=== PATIENT | male | born 1985 | race African-American/Black ===

== ENCOUNTER 2016-09-13 06:58 | Inpatient (IN) | payer OTHER ==
[2016-09-13] VITALS (10 sets, daily range): BP systolic 157–205; BP diastolic 68–110; PULSE 85–101; RESP 20; Ht 182.9 cm; Wt 154.0 kg
[~2016-09-13] VITALS: Ht 182.9 cm; Wt 154.0 kg
[2016-09-13] MEDS ORDERED: LORAZEPAM 2 MG INJ IV STA (07:14)
[2016-09-13] MEDS ORDERED: SOD CHLORIDE 0.9% 1,000 ML IV STA (07:14)
[2016-09-13 07:25] LABS: ADD SCAN DIFF NO
[2016-09-13 07:29] LABS: POTASSIUM 4.4 mmol/L (3.5-5.1)
[2016-09-13 07:30] LABS: INR 1.05; PROTIME 13.7 Sec (12.2-14.2); PT RATIO 1.1
[2016-09-13 07:31] LABS: PARTIAL THROMBOPLASTIN TIME 24.8 Sec (25.0-35.0)
[2016-09-13 07:32] LABS: CALCIUM 7.2 mg/dl (8.4-10.2)
[2016-09-13 07:33] LABS: BASOPHILS % 0.3 % (0.0-2.0); EOSINOPHILS # 0.1 10^3/ul (0.0-0.5); EOSINOPHILS % 0.7 % (0.0-7.0); HEMATOCRIT 27.9 % (42.0-52.0); HEMOGLOBIN 8.9 g/dl (14.0-18.0); LYMPHOCYTES # 1.6 10^3/ul (0.8-2.9); LYMPHOCYTES % 22.3 % (15.0-51.0); MEAN CORPUSCULAR HEMOGLOBIN 27.5 pg (29.0-33.0); MEAN CORPUSCULAR HGB CONC 31.9 g/dl (32.0-37.0); MEAN CORPUSCULAR VOLUME 86.1 fl (82.0-101.0); MEAN PLATELET VOLUME 12.1 fl (7.4-10.4); MONOCYTE # 0.5 10^3/ul (0.3-0.9); MONOCYTES % 7.4 % (0.0-11.0); NEUTROPHILS % 68.7 % (39.0-77.0); PLATELET COUNT 225 10^3/UL (140-415); RED BLOOD COUNT 3.24 10^6/ul (4.70-6.10); RED CELL DISTRIBUTION WIDTH 14.4 % (11.5-14.5); WHITE BLOOD COUNT 7.3 10^3/ul (4.8-10.8)
[2016-09-13 07:46] LABS: CREATININE 19.55 mg/dl (0.61-1.24)
--- NOTE | 2016-09-13 08:06 | RADRPT ---
PROCEDURE: CT BRAIN WITHOUT CONTRAST CLINICAL INDICATION: 31-year-old male with seizure. TECHNIQUE: The study was performed utilizing [employer] VCT 64-slice CT scanner. Direct axial sections were obtained from the foramen magnum to the vertex without the use of intravenous contrast material. Sagittal and coronal reformations were obtained. One or more of the following dose reduc tion techniques were utilized: automated exposure control, adjustment of the mA and/or kV according to patient's size or use of iterative reconstruction technique. The images were viewed on a PACS w orkstation. CTD/vol = 44.6 mGy; Total Exam DLP = 720.2 mGy-cm. COMPARISON: None. FINDINGS: There has been a prior left frontal craniotomy. There is underlying focal left frontal encephalomal acia with a cortical calcific density measuring 5 x 3 mm. This may be from a prior ventriculostomy. There is mild prominence of the sulci and cisternal spaces consistent with diffuse volume loss. Th ere are mild periventricular and deep white matter areas of decreased density. There is no evidence for mass effect or midline shift. There is no evidence for acute intra or extra-axial blood. The v isualized paranasal sinuses are without abnormal soft tissue. IMPRESSION: 1. Status post left frontal craniotomy. 2. Focal left frontal encephalomalacia with a small cortical calcification possibly from prior vent riculostomy placement. 3. Mild diffuse volume loss. 4. Diffuse periventricular and deep white matter areas of abnormal density. Prior studies are not available to assess interval change. Etiologies include sequela of prior trauma, radiation therapy, vasculitis. Clinical correlation is necessary. .Adam Olsen MD, Date Time Electronically viewed and signed by .Adam Olsen MD, on 09/13/2016 08:06 .M/
[2016-09-13 08:39] LABS: POTASSIUM 4.3 mmol/L (3.5-5.1)
[2016-09-13 08:54] LABS: CREATININE 19.54 mg/dl (0.61-1.24)
[2016-09-13] MEDS ORDERED: ONDANSETRON 4 MG INJ IV PRN ×2 (09:30→10:30)
[2016-09-13] MEDS ORDERED: ACETAMINOPHEN 325 MG TAB PO PRN ×2 (09:30→10:30)
[2016-09-13] MEDS ORDERED: LABETALOL HCL 20MG INJ IV ONE (09:30)
[2016-09-13] MEDS ORDERED: SOD CHLORIDE 0.9% 1,000 ML IV SCH (10:27)
[2016-09-13] MEDS ORDERED: NITROGLYCERIN (SL) 0.4 MG TAB SL PRN (10:30)
[2016-09-13] MEDS ORDERED: LORAZEPAM 2 MG INJ IV PRN (10:30)
[2016-09-13] MEDS ORDERED: MAGNESIUM HYDROXIDE 30ML CUP PO PRN (10:30)
[2016-09-13] MEDS ORDERED: NACL 0.9% 3 ML SYG IV SCH (10:30)
[2016-09-13] MEDS ORDERED: NA PHOSPHATE/BIPHOS 133 ML ENEMA PR PRN (10:30)
[2016-09-13] MEDS ORDERED: DOCUSATE SODIUM 100 MG CAP PO PRN (10:30)
[2016-09-13] MEDS ORDERED: ALBUTEROL/IPRATROPIUM (NEB) 3 ML AMP HHN PRN (10:30)
--- NOTE | 2016-09-13 10:42 | ERA ---
ER Documentation Chief Complaint Date/Time DATE: 09/13/16 TIME: 10:39 Chief Complaint POSSIBLE SEIZURE WITH ORAL TRAUMA HPI Patient is a 31-year-old male with no medical problems who presents with a seizure. The patient was brought in by ambulance. He says "it felt like somebody was twisting my arm behind my back" and then he does not remember anything. He bit his tongue. He fell to the ground. He has never had a seizure before. He denies fevers or medications. He said this happened just prior to arrival. His roommate witnessed this and called 911. Upon review of old medical records this is the patient's first visit to the emergency department. He does not currently have a primary doctor. He denies any urinary symptoms or decrease in urination. ROS All systems reviewed and are negative except as per history of present illness. 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.) Hx Miscellaneous Medical Probl: Yes Hx Alcohol Use: No Hx Substance Use: No Hx Tobacco Use: No Smoking Status: Unknown if ever smoked FmHx Family History: No diabetes Physical Exam Vitals Vital Signs Date Time Temp Pulse Resp B/P Pulse Ox O2 Delivery O2 Flow Rate FiO2 09/13/16 10:37 81 21 165/113 100 Room Air 09/13/16 09:43 80 22 152/108 100 Room Air 09/13/16 09:21 90 21 166/113 98 Room Air 09/13/16 07:03 98.1 118 24 165/119 98 Physical Exam Const: No acute distress Head: Atraumatic Eyes: Normal Conjunctiva ENT: Patient does have a laceration to the left side of the tongue which is no longer bleeding Neck: Full range of motion..~ No meningismus. Resp: Clear to auscultation bilaterally Cardio: Regular rate and rhythm, no murmurs Abd: Soft, non tender, non distended. Normal bowel sounds Skin: No petechiae or rashes Back: No midline or flank tenderness Ext: No cyanosis, or edema Neur: Awake and alert, cranial nerves II through XII are intact, strength is 5 out of 5 in all 4 extremities, no slurred speech Psych: Normal Mood and Affect Result Diagram: 09/13/16 0706 09/13/16 0809 Results 24 hrs Laboratory Tests Test 09/13/16 07:06 09/13/16 08:09 White Blood Count 7.310^3/ul Red Blood Count 3.2410^6/ul Hemoglobin 8.9g/dl Hematocrit 27.9% Mean Corpuscular Volume 86.1fl Mean Corpuscular Hemoglobin 27.5pg Mean Corpuscular Hemoglobin Concent 31.9g/dl Red Cell Distribution Width 14.4% Platelet Count 57119^3/UL Mean Platelet Volume 12.1fl Neutrophils % 68.7% Lymphocytes % 22.3% Monocytes % 7.4% Eosinophils % 0.7% Basophils % 0.3% Nucleated Red Blood Cells % 0.0/100WBC Neutrophils # 5.010^3/ul Lymphocytes # 1.610^3/ul Monocytes # 0.510^3/ul Eosinophils # 0.110^3/ul Basophils # 0.010^3/ul Nucleated Red Blood Cells # 0.010^3/ul Prothrombin Time 13.7Sec Prothrombin Time Ratio 1.1 INR International Normalized Ratio 1.05 Activated Partial Thromboplast Time 24.8Sec Sodium Level 143mmol/L 143mmol/L Potassium Level 4.4mmol/L 4.3mmol/L Chloride Level 104mmol/L 104mmol/L Carbon Dioxide Level 12mmol/L 17mmol/L Anion Gap 31 26 Blood Urea Nitrogen 179mg/dl 179mg/dl Creatinine 19.55mg/dl 19.54mg/dl Glucose Level 168mg/dl 102mg/dl Calcium Level 7.2mg/dl 7.0mg/dl Current Medications Medications (Trade) Dose Ordered Sig/Hillary Route PRN Reason Start Time Stop Time Status Last Admin Dose Admin Sodium Chloride (NS) 1,000 ml @ 1,000 mls/hr Q1H STAT IV 09/13/16 07:14 09/13/16 08:13 DC 09/13/16 07:35 Lorazepam (Ativan) 1 mg ONCE STAT IV 09/13/16 07:14 09/13/16 07:16 DC 09/13/16 07:35 Ondansetron HCl (Zofran Inj) 4 mg BRIDGE ORDER PRN IV NAUSEA AND/OR VOMITING 09/13/16 09:30 09/14/16 09:29 Acetaminophen (Tylenol Tab) 650 mg ER BRIDGE PRN PO MILD PAIN/FEVER 09/13/16 09:30 09/14/16 09:29 Labetalol HCl (Labetalol) 20 mg ONCE ONCE IV 09/13/16 09:30 09/13/16 09:31 09/13/16 09:33 IV Flush (NS 3 ml) 3 ml PER PROTOCOL IV 09/13/16 10:30 UNV Ondansetron HCl (Zofran Inj) 4 mg Q6H PRN IV NAUSEA AND/OR VOMITING 09/13/16 10:30 UNV Acetaminophen (Tylenol Tab) 650 mg Q6H PRN PO PAIN LEVEL 1-3 OR FEVER 09/13/16 10:30 UNV Acetaminophen/ Hydrocodone Bitart ([place] (5/325)) 1 tab Q6H PRN PO MODERATE PAIN LEVEL 4-6 09/13/16 10:30 UNV Morphine Sulfate (morphine) 2 mg Q4H PRN IV SEVERE PAIN LEVEL 7-10 09/13/16 10:30 UNV Docusate Sodium (Colace) 100 mg Q12H PRN PO CONSTIPATION 09/13/16 10:30 UNV Magnesium Hydroxide (Milk Of Mag) 30 ml DAILY PRN PO CONSTIPATION 09/13/16 10:30 UNV Sodium Biphosphate/ Sodium Phosphate (Fleet Enema) 133 ml DAILY PRN [place] CONSTIPATION 09/13/16 10:30 UNV Pantoprazole (Protonix Tab) 40 mg DAILY@06 PO 09/14/16 06:00 UNV Heparin Sodium (Porcine) (Heparin (5000 Units/0.5 ml)) 5,000 unit Q12 SC 09/13/16 21:00 UNV Lorazepam 0.5 mg 0.5 mg Q6H PRN IV ANXIETY 09/13/16 10:30 UNV Sodium Chloride (NS) 1,000 ml @ 100 mls/hr Q10H IV 09/13/16 10:27 UNV Albuterol/ Ipratropium (Duoneb) 3 ml Q4H RESP THERAPY PRN HHN SHORTNESS OF BREATH 09/13/16 10:30 UNV Hydralazine HCl (Apresoline) 10 mg Q6H PRN IV ELEVATED BLOOD PRESSURE 09/13/16 10:30 UNV Clonidine (Catapres) 0.1 mg Q6H PRN PO ELEVATED BLOOD PRESSURE 09/13/16 10:30 UNV Nitroglycerin (Nitroglycerin (Sl Tab) 0.4 Mg) 1 tab Q5M PRN SL ANGINA 09/13/16 10:30 UNV Procedures/MDM CT brain shows no skull fracture or intracranial hemorrhage per radiology. There are old changes related to previous brain surgery. Patient is a 31-year-old male with no medical problems who presents with a new onset seizure. Unfortunately the patient was found to have significantly elevated BUN and creatinine and I am concerned about acute renal failure. His creatinine is so high that he may require dialysis. The patient has anemia with a hemoglobin of 8.9. He does not require transfusion and there is no active bleeding at this time. There is no sign of intracranial hemorrhage, skull fracture, or intracranial mass. The patient will be admitted to the care of Dr. Fraire from the panel team as he does not currently have a primary doctor. Dr. Fraire consulted Dr. Larry who has seen the patient at the bedside. Critical Care: Time: 35 minutes excluding all billable procedures. Treatments/Evaluations: Close monitoring and treatment of unstable vital signs, cardiorespiratory, and neurologic status, while maintaining tight balance of fluid, respiratory, and cardiac interventions. Departure Diagnosis: Primary Impression: Acute renal failure Qualified Code: N17.9 - Acute renal failure, unspecified acute renal failure type Additional Impressions: Seizure Hypertension Qualified Code: I10 - Essential hypertension Condition: Serious CASS HERNANDEZ MD Sep 13, 2016 10:42
[2016-09-13] MEDS ORDERED: hydrALAzine 20 MG INJ IV ONE (11:00)
--- NOTE | 2016-09-13 12:03 | RADRPT ---
PROCEDURE: XR Chest AP portable CLINICAL INDICATION: CHF TECHNIQUE: An AP portable radiograph of the chest was submitted. COMPARISON: None. FINDINGS: Support Hardware: None Cardiovascular: The heart is upper normal in size and the peripheral pulmonary vasculature appears n ormal.. Lung Horn: The lung horn appear clear with no nodule, alveolar infiltrate, or interstitial promi nence evident. Pleural Spaces: No pneumothorax or pleural effusion is identified. Osseous Structures: The osseous structures appear intact. Soft Tissues: The soft tissues appear generous. IMPRESSION: Unremarkable portable chest. Physician Surjit Date Time Electronically viewed and signed by Physician Surjit on 09/13/2016 12:03 /
--- NOTE | 2016-09-13 12:10 | RADRPT ---
PROCEDURE: US Renal CLINICAL INDICATION: A K I TECHNIQUE: Multiple sonographic images of the kidneys and bladder were obtained. Evaluation of th e kidneys and bladder was performed as well with jones scale and color and Doppler evaluation using a curved array transducer. The images were reviewed on a high-resolution PACS workstation. COMPARISON: No prior studies are available for comparison. FINDINGS: The right kidney measures 11.0 cm in length. The left kidney measures 11.0 cm in length. Both kidney s are extremely echogenic. There is a 3.0 centimeters cyst in the superior pole of the left kidney a nd a 1.9 cm cyst at the mid pole of the left kidney. There is no hydronephrosis or intra renal calc ification evident. The bladder appears unremarkable. IMPRESSION: 1. The kidneys are normal in size but extremely echogenic compatible with medical renal disease. t here is no evidence of hydronephrosis. 2. 2 cysts are seen within the left kidney 1 at the superior pole measuring 3 mm in diameter and 1 at the mid pole measuring 1.9 cm. 3. The bladder appears unremarkable. Physician Surjit Date Time Electronically viewed and signed by Physician Surjit on 09/13/2016 12:09 /
[2016-09-13 12:12] LABS: TROPONIN-I 0.083 ng/ml (0.00-0.12)
[2016-09-13 12:25] LABS: CK-MB 6.09 ng/ml (0.0-2.4)
[2016-09-13] MEDS ORDERED: MANNITOL 25% 50 ML INJ IV* ONE (12:30)
[2016-09-13 12:46] LABS: HAAIG REFLEX REFLEX FILED
[2016-09-13 13:07] LABS: COMPLEMENT C3 91 mg/dl (88-165); COMPLEMENT C4 34 mg/dl (14-44)
--- NOTE | 2016-09-13 13:38 | OPR ---
DATE OF OPERATION: 09/13/2016 PREOPERATIVE DIAGNOSIS: Renal failure. POSTOPERATIVE DIAGNOSIS: Renal failure. OPERATION PERFORMED: Right femoral hemodialysis catheter placement. SURGEON: Jarred Hammer MD ANESTHESIA: Local. CONSENT: Risks, benefits, complications, alternative therapies explained to the patient and the [facility] danica, consent obtained. OPERATIVE TECHNIQUE: The patient was placed in supine position, prepped and draped in usual sterile fashion, 1% lidocaine was used throughout the operation for local anesthesia. Access was gained in the right common femoral vein. Guidewire was advanced through without any difficulty. Subcutaneou s tissues dilated. A 19.5 cm dialysis catheter advanced over guidewire, secured to skin using silk sutures. Both ports of the catheter were aspirated and injected using heparinized saline solution. Patient tolerated procedure well. Dictated By: JARRED HAMMER MD FM/NTS Conf#: [id number] DID#: [id number] CC: JARRED HAMMER MD;*EndCC*
--- NOTE | 2016-09-13 13:48 | CONS ---
DATE OF ADMISSION: 09/13/2016 DATE OF CONSULTATION: 09/13/2016 TYPE OF CONSULTATION: Nephrology. REASON FOR CONSULTATION: Acute kidney injury. PHYSICIAN REQUESTING CONSULTATION: Dr. Edd Fraire HISTORY OF PRESENT ILLNESS: This is a 31-year-old male with no past medical history. He presents [facility] with seizure. The patient stated on the day of seizure, that he felt something was going on with his body. He had some prodromal symptoms of fatigue; then the patient remembers being on the floor. He woke up to paramedics transporting him to [facility]. The patient did bite his tongue. The patient had no prior history of seizures before. Upon arrival, the patient had a BUN of 179 and creatinine 19.55, with repeat BUN and creatinine with neha lar results. The patient had a CT scan of the brain on admission, which showed a previous history o f left frontal craniotomy and left frontal encephalomalacia, mild diffuse volume loss and no other f indings noted. In terms of the patient's renal history, per patient, he has no prior history of kidney disease. He has no family history of kidney disease. The patient states that he believes 2 years ago, he had b lood drawn; he is not sure if a renal panel was included, but he was told that he had normal blood d alexsandra. The patient has a history of hypertension. He does not take any blood pressure medications; t hat history was known for the last 2 years. The patient also denies any recent drug use. He does a dmit to having NSAID use, sometimes 4 to 5 pills a day for brief periods, but that has been ongoing for the last several months. The patient denies any other substance abuse, but denies any recent co ntrast exposure. Denies any recent antibiotic use. Patient does also describe uremic symptoms of f atigue and malaise. The patient describes metallic taste in his mouth, loss of appetite, lethargy a nd weakness. He denies any recent rash. He denies any hemoptysis, hemetemesis, hematochezia. He d enies any frothy urine. PAST MEDICAL HISTORY: History of hypertension. 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 ALLERGIES: NO KNOWN DRUG ALLERGIES. FAMILY HISTORY: No family history of kidney disease or heart disease. SOCIAL HISTORY: Does not drink, smoke or do drugs. MEDICATIONS: None. REVIEW OF SYSTEMS: A 14-point review of systems was conducted. Pertinent positives in HPI, otherwi se negative. PHYSICAL EXAMINATION: VITAL SIGNS: Blood pressure is 165/113, respirations 21, pulse 81, temperature 98.1. HEENT: Head is normocephalic. There is previous craniotomy scar. Pupils are reactive to light. NECK: Supple. HEART: Regular rate. LUNGS: Show diminished breath sounds at the base. ABDOMEN: Soft, nontender to palpation. No rebound or guarding. EXTREMITIES: Negative for clubbing, cyanosis, edema. DERMATOLOGIC: No rashes. MUSCULOSKELETAL: No joint effusions. NEUROLOGIC: No focal deficits. LABORATORY DATA: Shows a sodium 143, potassium 4.3, chloride 104, bicarbonate 17, BUN 179, creatini ne 19.54. White count 7.3, hemoglobin 8.9, hematocrit 27.9, platelet count 225. CT scan as stated in HPI. ASSESSMENT AND PLAN: This is a 31-year-old male who presents with: 1. Nonoliguric acute kidney injury with unknown baseline creatinine. Etiology of current acute kid rosemary injury is unknown. Differential is broad, including acute tubular necrosis versus intrarenal pa thology, questionable glomerulonephritis versus progression of undiagnosed chronic kidney disease. Plan at this point is to do a full evaluation. Will check a UA and evaluate under microscopy. Will check urine electrolytes. We will check a stat renal ultrasound to rule out obstruction, and to ev aluate size of renal parenchyma. We will also do a serological workup by checking an [place], ANCA, ant i-double stranded DNA complements. Patient will be initiated on urgent hemodialysis. The patient w ill be dialyzed for 2 hours on F160 dialysis with blood flow rates of 150, dialysate flow rates of 3 00 mm per minute. The patient will be given mannitol 25 grams IV with dialysis with no ultrafiltrat ion. Will monitor closely for any signs of dysequilibrium syndrome. Will also further anticipate d aily dialysis for solute clearance. The patient may also require renal biopsy once clinically stabl e. 2. Hypertension. Etiology is secondary to chronic kidney disease/acute kidney injury. Would edwar nue medical management with blood pressure medications. Will hold ultrafiltration at this time. 3. Metabolic acidosis secondary to acute kidney injury, possible chronic kidney disease. We will d ialyze the patient on a 35 bicarbonate bath. 4. Anemia, likely of chronic disease. Monitor H and H levels. Check an iron panel and ferritin le breanne. 5. Seizure. Etiology is likely secondary to uremia, acute kidney injury. The patient is status po st Ativan. Will continue to monitor. Thank you, Dr. Fraire for this interesting consultation. I will be a pleasure to follow the patient w ith you throughout the hospital course. Dictated By: DELVIS LIANG/TRUDI Conf#: [id number] DID#: [id number]
[2016-09-13 13:51] LABS: HEPATITIS B CORE ANTIBODY NEGATIVE (NEGATIVE)
--- NOTE | 2016-09-13 14:43 | HP ---
DATE OF ADMISSION: 09/13/2016 CHIEF COMPLAINT: Seizure activity. HISTORY OF PRESENT ILLNESS: This is a 31-year-old male with past medical history of hypertension wh o presents with seizure activity. Apparently early this morning he had seizure activity home he bel ieves lasted for about 2 minutes. When he woke up, his roommate saw him and called the EMS. He not iced that he did bite his tongue, but denied any urinary or fecal incontinence. He had some chill s ymptoms as well. Apparently, he has never had seizure activity in the past, although he has had a h istory of a brain tumor removal at age 4 with craniotomy in the past, but again that was age 4. He denied any headaches or dizziness or significant chest pain. No dysuria, no hematuria. When he cam e into the ER today, he was also found with very elevated BUN and creatinine levels, BUN of 179, cre atinine 19.5. The patient says that he has not been able to sleep for the last 2 weeks as well, as his "schedule" has been thrown off from work, but does not further evaluate why that is. Because of the abnormal lab values, the kidney doctor was called to evaluate the patient. The patient present ly has received access for emergent hemodialysis, which he is presently getting right now, but he is alert and answering questions. PAST MEDICAL HISTORY: As above. ALLERGIES: NO KNOWN DRUG ALLERGIES. MEDICATIONS AT HOME: None. PAST SURGICAL HISTORY: Craniotomy in the past. SOCIAL HISTORY: Negative for smoking, drinking, or IV drug abuse. FAMILY HISTORY: Noncontributory. PHYSICAL EXAMINATION: VITAL SIGNS: T-max 98.1, pulse 80 to 118, respirations 21 to 24, blood pressure 152 to 166 systolic over 108 to 113 diastolic, saturating at 98% on room air. GENERAL: The patient is lying in bed, answering questions appropriately. No acute distress. HEENT: Pupils equal, round, react to light. Extraocular muscles intact. There is a laceration on the left side of the tongue. No longer bleeding. NECK: Supple, no thyromegaly. LUNGS: Clear to auscultation bilaterally. CARDIOVASCULAR: S1, S2 heard. No rubs or gallops. ABDOMEN: Soft, nontender, nondistended. Normal bowel sounds. No rebound or guarding. MUSCULOSKELETAL: No lower extremity edema. NEUROLOGIC: No focal deficits. LABORATORIES: CBC is essentially normal. The sodium 143, potassium 4.3, chloride 104, CO2 17, BUN 179 and creatinine 19.5, glucose of 102, is 975, CK-MB is 6.09, the renal ultrasound did show 2 cysts seen in the left kidney, one at the superior pole measuring 3 mm and one at the mid pole carley suring 1.9 cm. The kidneys are normal size, but extremely echogenic compatible with medical renal d isease, but no hydronephrosis. Bladder appears unremarkable. Head CT was performed. Status post l eft frontal craniotomy, focal left frontal encephalomalacia with small cortical calcification possib ly from prior ventriculostomy placement, diffuse periventricular and deep white matter areas of abno rmal density. Chest x-ray unremarkable. ASSESSMENT AND PLAN: A 31-year-old male with seizure activity and significantly elevated BUN and cr eatinine levels. 1. Seizure activity. Again, we will admit the patient to med/surg floor, do neuro checks every 4 h ours. Consider getting an EEG and get a neurology consult, put him on anti-seizure medication as we ll for now, continue IV fluids. 2. Renal insufficiency. Again, appreciate renal consult. We will follow up the lab studies ordere d by renal team to further evaluate the patient's kidney status and continue dialysis as per recomme ndations from the renal team. Monitor BUN and creatinine levels. Monitor urine output. 3. Hypertension. He is on hydralazine p.r.n. Blood pressure is presently stable, although the juju stolic is somewhat high. 4. Gastrointestinal prophylaxis PPI. 5. Deep venous thrombosis prophylaxis, heparin subcutaneously. Dictated By: MISTI HADDAD Conf#: [id number] DID#: [id number]
[2016-09-13] MEDS ORDERED: LEVETIRACETAM 500 MG (PMX) 100 ML IVPB SCH (15:00)
[2016-09-13 15:50] LABS: ADD UMIC YES; URINE BILIRUBIN (Dip) NEGATIVE (NEGATIVE); URINE BLOOD (Dip) 2+ (NEGATIVE); URINE COLOR LT. YELLOW (YELLOW); URINE GLUCOSE (Dip) NEGATIVE (NEGATIVE); URINE KETONES (Dip) NEGATIVE (NEGATIVE); URINE LEUKOCYTE ESTERASE (Dip) NEGATIVE (NEGATIVE); URINE NITRITE (Dip) NEGATIVE (NEGATIVE); URINE TOTAL PROTEIN (Dip) 2+ (NEGATIVE); URINE UROBILINOGEN (Dip) 0.2 E.U./dL (0.1-1.0)
[2016-09-13 16:03] LABS: BACTERIA,URINE FEW; TRANSITIONAL EPI CELLS,URINE FEW
--- NOTE | 2016-09-13 16:14 | CONS ---
DATE OF ADMISSION: 09/13/2016 DATE OF CONSULTATION: 09/13/2016 HISTORY OF PRESENT ILLNESS: The patient is a 31-year-old gentleman with essentially no past medical history with the exception of craniotomy for some neoplasm at the age of 4 and residual weakness of the right hand. The patient presented following a seizure at home. No previous seizures. No aura preceding the seizure. On admission, he was found to have a BUN of 179 and creatinine of 19.5. He has no known history of kidney disease. PAST MEDICAL HISTORY: None. ALLERGIES: NONE. FAMILY HISTORY: Unrevealing. SOCIAL HISTORY: No alcohol, tobacco, drug use. MEDICATIONS: No medications prior to admission. REVIEW OF SYSTEMS: All pertinent positives included in the above history of present illness. DIAGNOSTICS: Here, patient had CAT scan of the head which shows status post left frontal craniotomy with focal left frontal encephalomalacia, small cortical calcification possibly from prior ventricu lostomy placement. X-ray unremarkable. Renal ultrasound: Echogenic kidneys with cysts. The rest of his labs show hemoglobin 8.9, hematocrit 27.9, the rest of CBC within normal limits. BUN, as I m entioned 179, creatinine 19. CK 975. Troponins negative. PT, PTT within normal limits. Normal co mplement. Negative hepatitis panel. CURRENT MEDICATIONS: 1. Pantoprazole. 2. Heparin for DVT prevention. 3. He was put on Keppra at a dose of 500 mg twice daily. PHYSICAL EXAMINATION: VITAL SIGNS: 98.1 temperature, pulse 80, 23 respirations, 151/100 blood pressure. GENERAL: Not in acute distress, lying in bed. HEENT: Normocephalic, atraumatic head. NECK: No carotid bruits, lymph nodes or thyromegaly. LUNGS: Clear to auscultation bilaterally. CARDIAC: Normal cardiac rhythm and sounds. ABDOMEN: Soft, nontender. EXTREMITIES: No cyanosis, clubbing or edema. NEUROLOGIC: He is awake, alert, and oriented x3 with fluent speech. Cranial nerve examination show s intact visual horn bilaterally. Pupils round, reactive to light from 4 to 2 mm bilaterally. Ex traocular movements intact without nystagmus. Symmetrical face. Preserved facial strength and sens ation. Tongue is in midline. Palate elevates symmetrically. Motor strength examination shows weak ness in the right hand, unable to make a fist, which goes back to the age of 44 years old, when he vale d some tumor surgery in the brain. Rest of strength is preserved and 5/5. Sensory examination amrita sly intact to light touch and pain. Deep tendon reflexes 2+ upper extremities and knees, 1+ ankle j erks. Equivocal response to plantar stimulation bilaterally. Coordination preserved on finger-to-f rona testing. No dysmetria or tremor. Gait was not assessed. IMPRESSION: New onset seizures. Newly diagnosed severe uremia. History of neurosurgery with resid ual encephalomalacia on CAT scan of the head. PLAN: Seizure is likely related to uremia. It is okay to continue current Keppra and actually I wi ll decrease the dose to 500 mg per day would be enough. If the patient receives hemodialysis, he ma y receive the additional 500 post-hemodialysis. I will obtain EEG. If his renal function will be c ontrolled or restored, he may not need anti-seizure medications, but I will continue at least for no w. Thank you very much for this interesting consultation. Dictated By: JOSÉ MIGUEL FONSECA/TRUDI Conf#: [id number] DID#: [id number]
[2016-09-13 16:15] LABS: BARBITURATES Negative (NEGATIVE); BENZODIAZEPINES Negative (NEGATIVE)
[2016-09-13 16:17] LABS: CANNABINOIDS Negative (NEGATIVE); COCAINE Negative (NEGATIVE)
[2016-09-13 16:18] LABS: OPIATES Negative (NEGATIVE)
[2016-09-13] MEDS: hydrALAzine 20 MG INJ IV PRN (16:45)
[2016-09-13] MEDS: AMLODIPINE 5 MG TAB PO SCH (18:32)
[2016-09-13] MEDS: HEPARIN 5,000 UNIT/0.5 ML VIAL SC SCH (20:13)
[2016-09-14] VITALS (9 sets, daily range): BP systolic 139–182; BP diastolic 80–100; PULSE 88–98; RESP 18–20
[2016-09-14] MEDS: PANTOPRAZOLE (EC) 40 MG TAB PO SCH (05:29)
[2016-09-14 05:53] LABS: CHOL/HDL RATIO 4.4 RATIO
[2016-09-14 06:11] LABS: ADD SCAN DIFF NO
[2016-09-14 06:23] LABS: THYROID STIMULATING HORMONE 3.23 MIU/L (0.465-4.680)
[2016-09-14 06:52] LABS: BASOPHILS % 0.2 % (0.0-2.0); EOSINOPHILS % 0.3 % (0.0-7.0); HEMATOCRIT 24.5 % (42.0-52.0); HEMOGLOBIN 7.9 g/dl (14.0-18.0); LYMPHOCYTES # 0.9 10^3/ul (0.8-2.9); MEAN CORPUSCULAR HEMOGLOBIN 27.6 pg (29.0-33.0); MEAN CORPUSCULAR HGB CONC 32.2 g/dl (32.0-37.0); MEAN CORPUSCULAR VOLUME 85.7 fl (82.0-101.0); MEAN PLATELET VOLUME 12.1 fl (7.4-10.4); MONOCYTE # 0.5 10^3/ul (0.3-0.9); MONOCYTES % 7.6 % (0.0-11.0); NEUTROPHIL # 4.8 10^3/ul (1.6-7.5); NEUTROPHILS % 76.4 % (39.0-77.0); PLATELET COUNT 202 10^3/UL (140-415); RED BLOOD COUNT 2.86 10^6/ul (4.70-6.10); RED CELL DISTRIBUTION WIDTH 14.3 % (11.5-14.5); WHITE BLOOD COUNT 6.2 10^3/ul (4.8-10.8)
[2016-09-14 07:00] LABS: POTASSIUM 3.7 mmol/L (3.5-5.1)
[2016-09-14 07:04] LABS: CALCIUM 7.2 mg/dl (8.4-10.2); MAGNESIUM 1.8 mg/dl (1.7-2.5); PHOSPHORUS 9.1 mg/dl (2.5-4.9)
[2016-09-14 07:13] LABS: CREATININE 15.74 mg/dl (0.61-1.24)
[2016-09-14] MEDS: AMLODIPINE 5 MG TAB PO SCH ×2 (09:00→12:46)
[2016-09-14] MEDS: LEVETIRACETAM 500 MG (PMX) 100 ML IVPB SCH ×3 (09:00→11:31)
[2016-09-14] MEDS: HEPARIN 5,000 UNIT/0.5 ML VIAL SC SCH ×2 (09:32→21:34)
[2016-09-14] MEDS ORDERED: MANNITOL 25% 50 ML INJ IV* STA (11:02)
[2016-09-14 11:09] LABS: IRON 43 ug/dl (35-150)
[2016-09-14 11:18] LABS: TOTAL IRON BINDING CAPACITY 223 ug/dl (241-421)
--- NOTE | 2016-09-14 11:49 | PN ---
DATE: 09/14/2016 SUBJECTIVE: The patient had hemodialysis yesterday, tolerated well. There is no sign disequilibriu m syndrome, no nausea, no vomiting, no headache. The patient is scheduled again for dialysis today. I explained to the patient the patient's renal failure appears to be permanent, given his renal ul trasound which shows significant echogenicity. I explained to him that a renal biopsy will likely b e needed mid to late week. The patient understood. All questions were answered. OBJECTIVE: VITAL SIGNS: Blood pressure 139/80, respiration 18, pulse 90, temperature 98.3. HEENT: Head is normocephalic. NECK: Supple. HEART: Regular rate. LUNGS: Show diminished breath sounds at base. ABDOMEN: Soft, nontender to palpation. No rebound or guarding. EXTREMITIES: Negative for clubbing, cyanosis, no edema. DERMATOLOGIC: No rashes. MUSCULOSKELETAL: No joint effusions. NEUROLOGIC: No change in exam. MEDICATIONS: The patient's medications have been reviewed. LABORATORY DATA: Sodium 141, potassium 3.7, chloride 106, bicarbonate 18, BUN 139, creatinine 15.74 , calcium 7.2, phosphorus 9.1, white count 6.2, hemoglobin 7.9, hematocrit of 24.5, platelet count i s 202. The patient's complement levels C3-C4 within normal limits. Hepatitis panels negative. Uri nalysis shows a bland sediment with a protein creatinine ratio approximately 2.2 grams per gram of c reatinine. IMAGING: Renal ultrasound shows kidneys at normal size, but extremely echogenic. No hydronephrosis . ASSESSMENT AND PLAN: 1. Advanced renal failure, possible end-stage renal disease versus acute kidney injury. The patien t's initial workup suggests advanced renal failure as urinalysis is bland, patient has non-glomerula r proteinuria, renal ultrasound shows bilateral markedly echogenicity consistent with chronic kidney disease. Full serologic workup, however, is ongoing. To date, complement hepatitis panels are neg ative. [place], ANCA, anti-double stranded DNA, cryoglobulins are pending. The patient will likely nee d a renal biopsy for definitive evaluation which will be scheduled for later this week. At this poi nt, we will continue daily dialysis for solute clearance and volume removal. Will continue dialysis again today for 2 hours on an F160 dialysis with low blood flow rates and dialysis flow rates. Fransico l give mannitol with dialysis and monitor closely for any signs of disequilibrium syndrome. 2. Hypertension, etiology secondary to chronic kidney disease and acute kidney injury. Continue cu rrent medical management. Continue current blood pressure regimen. 3. Metabolic acidosis secondary to acute kidney injury, improving. Continue dialysis. 4. Mineral bone disorder. The patient is markedly hyperphosphatemic. Will start the patient on ph os binders. Will check PTH, vitamin D25 level. 5. Anemia, likely of chronic disease. Check an iron panel. Will give Epogen with dialysis. 6. Seizure, etiology is likely due to uremia. We will continue to monitor. Follow up with neurolo gy. 7. Severe uremia, etiology secondary to advanced renal failure. Continue hemodialysis. Dictated By: DELVIS LIANG/TRUDI Conf#: [id number] DID#: [id number]
[2016-09-14] MEDS: SEVELAMER 800 MG TAB PO SCH ×2 (12:46→17:27)
--- NOTE | 2016-09-14 15:13 | PN ---
Date/Time of Note Date/Time of Note DATE: 09/14/16 TIME: 15:04 Assessment/Plan VTE Prophylaxis VTE Prophylaxis Intervention: heparin Lines/Catheters IV Catheter Type (from Nrsg): Saline Lock Assessment/Plan Assessment/Plan 1. Seizure disorder, likely uremia related, on keppra, follow up with neurology 2. Acute on chronic renal failure, follow up with nephrology, ?HD 3. Normocytic anemia, CKD related, on epogen 4. Hypertension, renal failure repated, on norvasc 5. h/o left craniotomy at 4 years old with right hand weakness 6. DVT porphylaxis: heparin Subjective 24 Hr Interval Summary Free Text/Dictation no seizures Exam/Review of Systems Vital Signs Vitals Vital Signs Date Time Temp Pulse Resp B/P Pulse Ox O2 Delivery O2 Flow Rate FiO2 09/14/16 12:29 98 16 09/14/16 07:30 98.3 139/80 97 09/13/16 17:30 Room Air Intake and Output 09/13/16 09/13/16 09/14/16 15:00 23:00 07:00 Intake Total 400 ml 240 ml Output Total 400 ml 800 ml Balance 0 ml -560 ml Exam Constitutional: alert, oriented, well developed Psych: nl mood/affect, no complaints Head: atraumatic, normocephalic Eyes: EOMI, nl conjunctiva, nl lids ENMT: nl external ears & nose, nl lips & teeth, nl nasal mucosa & septum Neck: non-tender, supple Respiratory: clear to auscultation, normal air movement, No congested cough, No crackles/rales, No diminished breath sounds, No intercostal retraction, No labored breathing, No other, No respirations, No tactile fremitus, No wheezing Cardiovascular: nl pulses, regular rate and rhythm, No S3, No S4, No bruits, No diastolic murmur, No edema, No gallop, No irregular rhythm, No jugular venous distention (JVD), No murmurs/extra sounds, No other, No rub, No systolic murmur Gastrointestinal: nl liver, spleen, non-tender, soft, No ascites, No bowel sounds, No distended, No firm, No hepatomegaly, No mass , No other, No rebound or guarding, No splenomegaly, No surgical scars, No tender Musculoskeletal: nl extremities to inspection Extremities: normal pulses, No calf tenderness, No clubbing, No cyanosis, No edema, No other, No palpable cord, No pitting pedal edema, No tenderness Neurological: DETECTIVE INVESTIGATOR II-XII intact, nl mental status, nl speech, nl strength Skin: nl turgor Lymph: nl lymph nodes Results Result Diagram: 09/14/16 0505 09/14/16 0505 Results 24 hrs Laboratory Tests Test 09/14/16 05:05 White Blood Count 6.2 Red Blood Count 2.86 L Hemoglobin 7.9 L Hematocrit 24.5 L Mean Corpuscular Volume 85.7 Mean Corpuscular Hemoglobin 27.6 L Mean Corpuscular Hemoglobin Concent 32.2 Red Cell Distribution Width 14.3 Platelet Count 202 Mean Platelet Volume 12.1 H Neutrophils % 76.4 Lymphocytes % 15.0 Monocytes % 7.6 Eosinophils % 0.3 Basophils % 0.2 Nucleated Red Blood Cells % 0.0 Neutrophils # 4.8 Lymphocytes # 0.9 Monocytes # 0.5 Eosinophils # 0.0 Basophils # 0.0 Nucleated Red Blood Cells # 0.0 Sodium Level 141 Potassium Level 3.7 Chloride Level 106 Carbon Dioxide Level 18 L Anion Gap 21 H Blood Urea Nitrogen 139 #H Creatinine 15.74 #H Glucose Level 98 Hemoglobin A1c 5.2 Calcium Level 7.2 L Phosphorus Level 9.1 H Magnesium Level 1.8 Iron Level 43 Total Iron Binding Capacity 223 L Percent Iron Saturation 19 L Ferritin 320.0 Triglycerides Level 63 Cholesterol Level 89 L LDL Cholesterol, Calculated 56 HDL Cholesterol 20 L Cholesterol/HDL Ratio 4.4 Thyroid Stimulating Hormone (TSH) 3.230 Medications Medications Current Medications Ondansetron HCl (Zofran Inj) 4 mg Q6H PRN IV NAUSEA AND/OR VOMITING; Start 09/13 at 10:30 Acetaminophen (Tylenol Tab) 650 mg Q6H PRN PO PAIN LEVEL 1-3 OR FEVER; Start at 10:30 Acetaminophen/ Hydrocodone Bitart ([place] (5/325)) 1 tab Q6H PRN PO MODERATE PAIN LEVEL 4-6; Start 09/13/16 at 10:30 Morphine Sulfate (morphine) 2 mg Q4H PRN IV SEVERE PAIN LEVEL 7-10; Start at 10:30 Docusate Sodium (Colace) 100 mg Q12H PRN PO CONSTIPATION; Start 09/13/16 at 10: 30 Magnesium Hydroxide (Milk Of Mag) 30 ml DAILY PRN PO CONSTIPATION; Start at 10:30 Sodium Biphosphate/ Sodium Phosphate (Fleet Enema) 133 ml DAILY PRN [place] CONSTIPATION; Start 09/13/16 at 10:30 Pantoprazole (Protonix Tab) 40 mg DAILY@06 PO Last administered on 09/14/16 05: 29; Admin Dose 40 MG; Start 09/14/16 at 06:00 Heparin Sodium (Porcine) (Heparin (5000 Units/0.5 ml)) 5,000 unit Q12 SC Last administered on 09/14/16 09:32; Admin Dose 5,000 UNIT; Start 09/13/16 at 21:00 Lorazepam (Ativan) 0.5 mg Q6H PRN IV ANXIETY; Start 09/13/16 at 10:30 Hydralazine HCl (Apresoline) 10 mg Q6H PRN IV ELEVATED BLOOD PRESSURE Last administered on 09/13/16 16:45; Admin Dose 10 MG; Start 09/13/16 at 10:30 Clonidine (Catapres) 0.1 mg Q6H PRN PO ELEVATED BLOOD PRESSURE Last administered on 09/13/16 20:09; Admin Dose 0.1 MG; Start 09/13/16 at 10:30 Nitroglycerin 1 tab 1 tab Q5M PRN SL ANGINA; Start 09/13/16 at 10:30 Levetiracetam (Keppra 500 Mg/ 100ml (Pmx)) 100 ml @ 400 mls/hr DAILY IVPB Last administered on 09/14/16 11:31; Admin Dose 400 MLS/HR; Start 09/14/16 at 09: 00 Amlodipine Besylate (Norvasc) 5 mg DAILY PO Last administered on 09/14/16 12:46 ; Admin Dose 5 MG; Start 09/13/16 at 17:30 NILE FOOTE MD Sep 14, 2016 15:13
[2016-09-14 17:11] LABS: MICROALBUMIN 60.2 mg/dL
--- NOTE | 2016-09-14 19:15 | PN ---
Date/Time of Note Date/Time of Note DATE: 09/14/16 TIME: 19:14 Assessment/Plan Lines/Catheters IV Catheter Type (from Nrsg): Saline Lock Assessment/Plan Chief Complaint/Hosp Course ESRD SO HD cath placement will continue dialysis may need permcath placement Problems: Subjective 24 Hr Interval Summary Constitutional: improved Pain Control: mild Exam/Review of Systems Vital Signs Vitals Vital Signs Date Time Temp Pulse Resp B/P Pulse Ox O2 Delivery O2 Flow Rate FiO2 09/14/16 12:29 98 16 09/14/16 07:30 98.3 139/80 97 09/13/16 17:30 Room Air Intake and Output 09/13/16 09/13/16 09/14/16 15:00 23:00 07:00 Intake Total 400 ml 240 ml Output Total 400 ml 800 ml Balance 0 ml -560 ml Exam Neck: non-tender, supple Respiratory: clear to auscultation, normal air movement Cardiovascular: nl pulses, regular rate and rhythm Results Result Diagram: 09/14/16 0505 09/14/16 0505 JILLIAN RODRIGUEZ MD Sep 14, 2016 19:15
--- NOTE | 2016-09-14 20:06 | SP ---
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 DESCRIPTION OF PROCEDURE: Routine EEG was recorded digitally. Ltenb-da-phvut and tyjga-zs-ttj anderson ages were recorded and reviewed. All impedances were measured and recorded. Cap electrodes were pl aced in accordance with International 10-20 system of electrode placement. FINDINGS: Symmetrically distributed background activity of low to medium amplitude ranging in frequ ency between 8 to 10 cycles per second was seen in the awake state. Photic stimulation produces nor mal driving. Hyperventilation elicits no epileptiform activity. When patient gets drowsy and falls asleep, background rhythm gets less organized, partially replaced by slower waves 4 to 6 cycles per second. No definite epileptiform transients were seen. No signs of ongoing electrographic seizures or later alized slowing. IMPRESSION: Normal study. Please correlate clinically. Dictated By: JOSÉ MIGUEL FONSECA/TRUDI Conf#: [id number] DID#: [id number] CC: MISTI SIMMONS;*EndCC*
[2016-09-14] MEDS: EPOETIN 10000 UNITS/1 ML INJ (ESRD) SC SCH (21:36)
--- NOTE | 2016-09-14 22:52 | CONS ---
DATE OF ADMISSION: 09/13/2016 DATE OF CONSULTATION: 09/13/2016 TYPE OF CONSULTATION: Cardiothoracic. REASON FOR CONSULTATION: Thank you, Dr. Larry, for asking me to see this patient. HISTORY OF PRESENT ILLNESS: This is a 31-year-old male with a history of hypertension, was found to have elevation of the BUN and creatinine and will be needing hemodialysis access. PAST MEDICAL HISTORY: Hypertension. PAST SURGICAL HISTORY: Craniotomy at age of 4 for removal of a tumor. ALLERGIES: NONE. SOCIAL HISTORY: No smoking, drinking or drug use. MEDICATIONS: List reviewed. PHYSICAL EXAMINATION: VITAL SIGNS: Blood pressure is 110/60, pulse is 80, respirations 18. CARDIOVASCULAR: Normal S1, S2. No murmurs, gallops or rubs. LUNGS: Clear. ABDOMEN: Soft. EXTREMITIES: Warm. LABORATORY VALUES: Significant for hemoglobin of 8.9, white count 7.3, platelet count 235. INR 1.1 . BUN questions and a creatinine being in 19.5. IMPRESSION: Renal failure. RECOMMENDATIONS: We will proceed with the placement of a hemodialysis catheter. Discussed with the patient. All questions answered. Dictated By: JILLIAN RODRIGUEZ MD FM/NTS Conf#: [id number] DID#: [id number]
[2016-09-14] MEDS: HYDROCODONE/APAP (5/325) TAB PO PRN (23:38)
[2016-09-15] VITALS (8 sets, daily range): BP systolic 141–177; BP diastolic 72–102; PULSE 93–108; RESP 18
[2016-09-15] MEDS: PANTOPRAZOLE (EC) 40 MG TAB PO SCH (05:26)
[2016-09-15 05:56] LABS: PHOSPHORUS 8.3 mg/dl (2.5-4.9)
[2016-09-15 05:57] LABS: MAGNESIUM 1.7 mg/dl (1.7-2.5)
[2016-09-15] MEDS: SEVELAMER 800 MG TAB PO SCH ×3 (08:24→17:52)
[2016-09-15 08:26] LABS: ADD SCAN DIFF NO
[2016-09-15] MEDS: LEVETIRACETAM 500 MG (PMX) 100 ML IVPB SCH ×2 (08:26→11:59)
[2016-09-15 08:28] LABS: BASOPHILS % 0.4 % (0.0-2.0); EOSINOPHILS % 0.5 % (0.0-7.0); HEMATOCRIT 26.5 % (42.0-52.0); HEMOGLOBIN 8.6 g/dl (14.0-18.0); LYMPHOCYTES # 1.3 10^3/ul (0.8-2.9); LYMPHOCYTES % 17.5 % (15.0-51.0); MEAN CORPUSCULAR HEMOGLOBIN 28.2 pg (29.0-33.0); MEAN CORPUSCULAR HGB CONC 32.5 g/dl (32.0-37.0); MEAN CORPUSCULAR VOLUME 86.9 fl (82.0-101.0); MEAN PLATELET VOLUME 12.1 fl (7.4-10.4); MONOCYTE # 0.7 10^3/ul (0.3-0.9); NEUTROPHIL # 5.3 10^3/ul (1.6-7.5); NEUTROPHILS % 71.2 % (39.0-77.0); PLATELET COUNT 198 10^3/UL (140-415); RED BLOOD COUNT 3.05 10^6/ul (4.70-6.10); RED CELL DISTRIBUTION WIDTH 14.5 % (11.5-14.5); WHITE BLOOD COUNT 7.4 10^3/ul (4.8-10.8)
[2016-09-15 08:58] LABS: CREATININE 13.69 mg/dl (0.61-1.24)
[2016-09-15 08:59] LABS: CALCIUM 7.5 mg/dl (8.4-10.2)
[2016-09-15] MEDS: AMLODIPINE 5 MG TAB PO SCH (09:00)
[2016-09-15] MEDS: HEPARIN 5,000 UNIT/0.5 ML VIAL SC SCH ×2 (09:00→21:11)
--- NOTE | 2016-09-15 11:14 | PN ---
DATE: 09/15/2016 SUBJECTIVE: The patient is stable. Patient had hemodialysis again this morning, it was only for 1 hour due to catheter malfunction. No other acute events noted. No hemoptysis, hematemesis or hemato chezia. OBJECTIVE: VITAL SIGNS: Blood pressure 158/80, respirations 20, pulse 101, temperature 98.2. HEENT: Head is normocephalic. NECK: Supple. HEART: Regular rate. LUNGS: Show diminished breath sounds at the base. ABDOMEN: Soft, nontender to palpation. No rebound or guarding. EXTREMITIES: Negative for clubbing, cyanosis. No edema. DERMATOLOGIC: No rashes. MUSCULOSKELETAL: No joint effusions. NEUROLOGIC: No change in exam. MEDICATIONS: The patient's medications have been reviewed. LABORATORY DATA: Shows sodium 141, potassium 4.0, chloride 105, bicarbonate 21, BUN is 111, creatin ine 13.69, phosphorus 8.3. White count 7.4, hemoglobin 8.6, hematocrit 26.5, platelet count is 198. ASSESSMENT AND PLAN: 1. Advanced renal failure, possibly end-stage renal disease versus acute kidney injury. The paticorazon t's initial workup suggested advanced renal failure as the patient has a bland urinalysis, nonglomer ular proteinuria and renal ultrasound which shows markedly echogenicity consistent with chronic kidn ey disease. Serological workup to date have shown complements which are negative. Hepatitis panel which is negative. [place], ANCA, anti-double stranded DNA, cryoglobulins are pending. The patient danny l likely need a renal biopsy for definitive evaluation which is being scheduled for later this week. We will continue current dialysis for solute clearance volume removal. Will dialyze again tomorro w for 3 hours on low blood flow rates and dialysis flow rates. Will continue to give mannitol with dialysis and monitor for any signs of disequilibrium syndrome. 2. Hypertension. Blood pressure remains elevated. Continue blood pressure regimen. We will ultra filtrate with dialysis. 3. Metabolic acidosis secondary to acute kidney injury, improving. 4. Mineral bone disorder. The patient is markedly hypophosphatemic. Continue phos binders. Contin ue dialysis PTH, vitamin D25 level is pending. 5. Anemia of chronic disease. Continue to monitor hemoglobin and hematocrit levels. Continue Epog en. The patient has of iron deficiency. Will give IV Ferrlecit. 6. Seizure likely secondary to uremia. Continue to monitor. 7. Severe uremia clinically improving. Continue hemodialysis. 8. History of craniotomy at 4 years old. Dictated By: DELVIS LIANG/TRUDI Conf#: [id number] DID#: [id number]
[2016-09-15] MEDS: AMLODIPINE 10 MG TAB PO SCH (11:57)
[2016-09-15] MEDS: HYDROCODONE/APAP (5/325) TAB PO PRN (12:54)
[2016-09-15 13:26] LABS: ANA SCREEN NEGATIVE (NEGATIVE)
--- NOTE | 2016-09-15 15:22 | PN ---
Date/Time of Note Date/Time of Note DATE: 09/15/16 TIME: 15:18 Assessment/Plan VTE Prophylaxis VTE Prophylaxis Intervention: heparin Lines/Catheters IV Catheter Type (from Nrsg): PAULA CATH Assessment/Plan Assessment/Plan 1. Seizure disorder, likely uremia related, on keppra, follow up with neurology 2. Acute on chronic renal failure, follow up with nephrology, HD started on 2016 3. Normocytic anemia, CKD related, on epogen 4. Hypertension, renal failure repated, on norvasc 5. h/o left craniotomy at 4 years old with right hand weakness 6. DVT porphylaxis: heparin Subjective 24 Hr Interval Summary Free Text/Dictation no seizure activity Exam/Review of Systems Vital Signs Vitals Vital Signs Date Time Temp Pulse Resp B/P Pulse Ox O2 Delivery O2 Flow Rate FiO2 09/15/16 09:30 93 09/15/16 07:30 18 09/15/16 00:30 158/80 09/14/16 22:31 98.2 97 09/13/16 17:30 Room Air Intake and Output 09/14/16 09/14/16 09/15/16 15:00 23:00 07:00 Intake Total 700 ml 720 ml 340 ml Output Total 600 ml Balance 100 ml 720 ml 340 ml Exam Constitutional: alert, oriented, well developed Psych: nl mood/affect, no complaints Head: atraumatic, normocephalic Eyes: EOMI, PERRL, nl conjunctiva, nl lids ENMT: nl external ears & nose, nl lips & teeth, nl nasal mucosa & septum Neck: non-tender, supple Respiratory: clear to auscultation, normal air movement, No congested cough, No crackles/rales, No diminished breath sounds, No intercostal retraction, No labored breathing, No other, No respirations, No tactile fremitus, No wheezing Cardiovascular: nl pulses, regular rate and rhythm, No S3, No S4, No bruits, No diastolic murmur, No edema, No gallop, No irregular rhythm, No jugular venous distention (JVD), No murmurs/extra sounds, No other, No rub, No systolic murmur Gastrointestinal: nl liver, spleen, non-tender, soft, No ascites, No bowel sounds, No distended, No firm, No hepatomegaly, No mass , No other, No rebound or guarding, No splenomegaly, No surgical scars, No tender Musculoskeletal: nl extremities to inspection Extremities: normal pulses, No calf tenderness, No clubbing, No cyanosis, No edema, No other, No palpable cord, No pitting pedal edema, No tenderness Neurological: AUTOMOTIVE DETAILER II-XII intact, nl mental status, nl speech, nl strength Skin: nl turgor Lymph: nl lymph nodes Results Result Diagram: 09/15/16 0500 09/15/16 0500 Results 24 hrs Laboratory Tests Test 09/15/16 05:00 White Blood Count 7.4 Red Blood Count 3.05 L Hemoglobin 8.6 L Hematocrit 26.5 L Mean Corpuscular Volume 86.9 Mean Corpuscular Hemoglobin 28.2 L Mean Corpuscular Hemoglobin Concent 32.5 Red Cell Distribution Width 14.5 Platelet Count 198 Mean Platelet Volume 12.1 H Neutrophils % 71.2 Lymphocytes % 17.5 Monocytes % 10.0 Eosinophils % 0.5 Basophils % 0.4 Nucleated Red Blood Cells % 0.0 Neutrophils # 5.3 Lymphocytes # 1.3 Monocytes # 0.7 Eosinophils # 0.0 Basophils # 0.0 Nucleated Red Blood Cells # 0.0 Sodium Level 141 Potassium Level 4.0 Chloride Level 104 Carbon Dioxide Level 21 Anion Gap 20 H Blood Urea Nitrogen 114 H Creatinine 13.69 #H Glucose Level 96 Calcium Level 7.5 L Phosphorus Level 8.3 H Magnesium Level 1.7 Medications Medications Current Medications Ondansetron HCl (Zofran Inj) 4 mg Q6H PRN IV NAUSEA AND/OR VOMITING; Start 09/13 at 10:30 Acetaminophen (Tylenol Tab) 650 mg Q6H PRN PO PAIN LEVEL 1-3 OR FEVER; Start at 10:30 Acetaminophen/ Hydrocodone Bitart ([place] (5/325)) 1 tab Q6H PRN PO MODERATE PAIN LEVEL 4-6 Last administered on 09/15/16t 12:54; Admin Dose 1 TAB; Start 09/13 at 10:30 Morphine Sulfate (morphine) 2 mg Q4H PRN IV SEVERE PAIN LEVEL 7-10; Start at 10:30 Docusate Sodium (Colace) 100 mg Q12H PRN PO CONSTIPATION; Start 09/13/16 at 10: 30 Magnesium Hydroxide (Milk Of Mag) 30 ml DAILY PRN PO CONSTIPATION; Start at 10:30 Sodium Biphosphate/ Sodium Phosphate (Fleet Enema) 133 ml DAILY PRN [place] CONSTIPATION; Start 09/13/16 at 10:30 Pantoprazole (Protonix Tab) 40 mg DAILY@06 PO Last administered on 09/15/16 05: 26; Admin Dose 40 MG; Start 09/14/16 at 06:00 Heparin Sodium (Porcine) (Heparin (5000 Units/0.5 ml)) 5,000 unit Q12 SC Last administered on 09/14/16 21:34; Admin Dose 5,000 UNIT; Start 09/13/16 at 21:00 Lorazepam (Ativan) 0.5 mg Q6H PRN IV ANXIETY; Start 09/13/16 at 10:30 Hydralazine HCl (Apresoline) 10 mg Q6H PRN IV ELEVATED BLOOD PRESSURE Last administered on 09/13/16 16:45; Admin Dose 10 MG; Start 09/13/16 at 10:30 Clonidine (Catapres) 0.1 mg Q6H PRN PO ELEVATED BLOOD PRESSURE Last administered on 09/13/16 20:09; Admin Dose 0.1 MG; Start 09/13/16 at 10:30 Nitroglycerin 1 tab 1 tab Q5M PRN SL ANGINA; Start 09/13/16 at 10:30 Levetiracetam (Keppra 500 Mg/ 100ml (Pmx)) 100 ml @ 400 mls/hr DAILY IVPB Last administered on 09/15/16 08:26; Admin Dose 400 MLS/HR; Start 09/14/16 at 09: 00 Amlodipine Besylate (Norvasc) 10 mg DAILY PO Last administered on 09/15/16 11: 57; Admin Dose 10 MG; Start 09/15/16 at 11:00 NILE FOOTE MD Sep 15, 2016 15:22
[2016-09-15 17:13] LABS: MYELOPEROXIDASE ANTIBODY <1.0 AI; PROTEINASE-3 ANTIBODY <1.0 AI
--- NOTE | 2016-09-15 19:16 | PN ---
Date/Time of Note Date/Time of Note DATE: 09/15/16 TIME: 19:15 Assessment/Plan Lines/Catheters IV Catheter Type (from Nrsg): PAULA CATH Assessment/Plan Chief Complaint/Hosp Course ESRD SO HD cath placement will continue dialysis Plan for permcath placement Problems: Subjective 24 Hr Interval Summary Constitutional: improved Pain Control: mild Exam/Review of Systems Vital Signs Vitals Vital Signs Date Time Temp Pulse Resp B/P Pulse Ox O2 Delivery O2 Flow Rate FiO2 09/15/16 09:30 93 09/15/16 07:30 18 09/15/16 00:30 158/80 09/14/16 22:31 98.2 97 09/13/16 17:30 Room Air Intake and Output 09/14/16 09/14/16 09/15/16 15:00 23:00 07:00 Intake Total 700 ml 720 ml 340 ml Output Total 600 ml Balance 100 ml 720 ml 340 ml Exam ENMT: mucosa pink and moist, nl external ears & nose, nl lips & teeth, nl nasal mucosa & septum Neck: non-tender, supple Respiratory: clear to auscultation, normal air movement Cardiovascular: nl pulses, regular rate and rhythm Results Result Diagram: 09/15/16 0500 09/15/16 0500 JILLIAN RODRIGUEZ MD Sep 15, 2016 19:16
[2016-09-15] MEDS: hydrALAzine 20 MG INJ IV PRN (21:12)
[2016-09-15] MEDS: EPOETIN 10000 UNITS/1 ML INJ (ESRD) SC SCH (21:15)
--- NOTE | 2016-09-15 23:49 | CONS ---
Date/Time of Note Date/Time of Note DATE: 09/15/16 TIME: 23:48 Consult Date/Type/Reason Admit Date/Time Sep 13, 2016 at 09:09 Initial Consult Date Type of Consultation: neurology Subjective no acute events, no seizures Objective Vital Signs Date Time Temp Pulse Resp B/P Pulse Ox O2 Delivery O2 Flow Rate FiO2 09/15/16 22:33 101 142/87 09/15/16 20:30 98.2 18 97 Room Air Intake and Output 09/14/16 09/14/16 09/15/16 15:00 23:00 07:00 Intake Total 700 ml 720 ml 340 ml Output Total 600 ml Balance 100 ml 720 ml 340 ml Results/Medications Result Diagram: 09/15/16 0500 09/15/16 0500 Results 24 hrs Laboratory Tests Test 09/15/16 05:00 White Blood Count 7.4 Red Blood Count 3.05 L Hemoglobin 8.6 L Hematocrit 26.5 L Mean Corpuscular Volume 86.9 Mean Corpuscular Hemoglobin 28.2 L Mean Corpuscular Hemoglobin Concent 32.5 Red Cell Distribution Width 14.5 Platelet Count 198 Mean Platelet Volume 12.1 H Neutrophils % 71.2 Lymphocytes % 17.5 Monocytes % 10.0 Eosinophils % 0.5 Basophils % 0.4 Nucleated Red Blood Cells % 0.0 Neutrophils # 5.3 Lymphocytes # 1.3 Monocytes # 0.7 Eosinophils # 0.0 Basophils # 0.0 Nucleated Red Blood Cells # 0.0 Sodium Level 141 Potassium Level 4.0 Chloride Level 104 Carbon Dioxide Level 21 Anion Gap 20 H Blood Urea Nitrogen 114 H Creatinine 13.69 #H Glucose Level 96 Calcium Level 7.5 L Phosphorus Level 8.3 H Magnesium Level 1.7 Medications Current Medications Ondansetron HCl (Zofran Inj) 4 mg Q6H PRN IV NAUSEA AND/OR VOMITING; Start 09/13 at 10:30 Acetaminophen (Tylenol Tab) 650 mg Q6H PRN PO PAIN LEVEL 1-3 OR FEVER; Start at 10:30 Acetaminophen/ Hydrocodone Bitart ([place] (5/325)) 1 tab Q6H PRN PO MODERATE PAIN LEVEL 4-6 Last administered on 09/15/16t 12:54; Admin Dose 1 TAB; Start 09/13 at 10:30 Morphine Sulfate (morphine) 2 mg Q4H PRN IV SEVERE PAIN LEVEL 7-10; Start at 10:30 Docusate Sodium (Colace) 100 mg Q12H PRN PO CONSTIPATION; Start 09/13/16 at 10: 30 Magnesium Hydroxide (Milk Of Mag) 30 ml DAILY PRN PO CONSTIPATION; Start at 10:30 Sodium Biphosphate/ Sodium Phosphate (Fleet Enema) 133 ml DAILY PRN [place] CONSTIPATION; Start 09/13/16 at 10:30 Pantoprazole (Protonix Tab) 40 mg DAILY@06 PO Last administered on 09/15/16 05: 26; Admin Dose 40 MG; Start 09/14/16 at 06:00 Heparin Sodium (Porcine) (Heparin (5000 Units/0.5 ml)) 5,000 unit Q12 SC Last administered on 09/15/16 21:11; Admin Dose 5,000 UNIT; Start 09/13/16 at 21:00 Lorazepam (Ativan) 0.5 mg Q6H PRN IV ANXIETY; Start 09/13/16 at 10:30 Hydralazine HCl (Apresoline) 10 mg Q6H PRN IV ELEVATED BLOOD PRESSURE Last administered on 09/15/16 21:12; Admin Dose 10 MG; Start 09/13/16 at 10:30 Clonidine (Catapres) 0.1 mg Q6H PRN PO ELEVATED BLOOD PRESSURE Last administered on 09/13/16 20:09; Admin Dose 0.1 MG; Start 09/13/16 at 10:30 Nitroglycerin 1 tab 1 tab Q5M PRN SL ANGINA; Start 09/13/16 at 10:30 Levetiracetam (Keppra 500 Mg/ 100ml (Pmx)) 100 ml @ 400 mls/hr DAILY IVPB Last administered on 09/15/16 08:26; Admin Dose 400 MLS/HR; Start 09/14/16 at 09: 00 Amlodipine Besylate (Norvasc) 10 mg DAILY PO Last administered on 09/15/16 11: 57; Admin Dose 10 MG; Start 09/15/16 at 11:00 Assessment/Plan Chief Complaint/Hosp Course IMPRESSION: New onset seizures. Newly diagnosed severe uremia. History of neurosurgery with residual encephalomalacia on CAT scan of the head. PLAN: Seizure is likely related to uremia. continue current Keppra for now, Problems: JOSÉ MIGUEL WILSON MD Sep 15, 2016 23:49
[2016-09-16] VITALS (9 sets, daily range): BP systolic 120–161; BP diastolic 62–102; PULSE 95–100; RESP 18–20
[2016-09-16] MEDS: morphine 2 MG INJ IV PRN ×2 (01:59→06:38)
[2016-09-16] MEDS: PANTOPRAZOLE (EC) 40 MG TAB PO SCH (05:39)
[2016-09-16] MEDS: SEVELAMER 800 MG TAB PO SCH ×3 (07:35→16:41)
[2016-09-16] MEDS: AMLODIPINE 10 MG TAB PO SCH (08:35)
[2016-09-16] MEDS: HEPARIN 5,000 UNIT/0.5 ML VIAL SC SCH ×2 (08:38→21:47)
[2016-09-16 08:49] LABS: ADD SCAN DIFF NO
[2016-09-16 08:58] LABS: BASOPHILS % 0.2 % (0.0-2.0); EOSINOPHILS % 0.1 % (0.0-7.0); HEMATOCRIT 26.8 % (42.0-52.0); HEMOGLOBIN 8.5 g/dl (14.0-18.0); LYMPHOCYTES % 10.7 % (15.0-51.0); MEAN CORPUSCULAR HGB CONC 31.7 g/dl (32.0-37.0); MEAN CORPUSCULAR VOLUME 88.2 fl (82.0-101.0); MEAN PLATELET VOLUME 11.4 fl (7.4-10.4); MONOCYTE # 0.9 10^3/ul (0.3-0.9); MONOCYTES % 9.7 % (0.0-11.0); NEUTROPHIL # 7.1 10^3/ul (1.6-7.5); PLATELET COUNT 187 10^3/UL (140-415); RED BLOOD COUNT 3.04 10^6/ul (4.70-6.10); RED CELL DISTRIBUTION WIDTH 14.1 % (11.5-14.5)
[2016-09-16 09:15] LABS: POTASSIUM 4.4 mmol/L (3.5-5.1)
[2016-09-16 09:18] LABS: CALCIUM 8.3 mg/dl (8.4-10.2)
[2016-09-16] MEDS: LEVETIRACETAM 500 MG (PMX) 100 ML IVPB SCH (09:23)
[2016-09-16 09:25] LABS: CREATININE 14.69 mg/dl (0.61-1.24)
[2016-09-16] MEDS ORDERED: HEPARIN 1000 UNITS/NS (A-LINE) 1,000 ML ONE (13:10)
[2016-09-16] MEDS ORDERED: LIDOCAINE 1% (MDV) 20 ML INJ ONE (13:10)
[2016-09-16] MEDS ORDERED: IODIXANOL LOCM 50 ML BTL ONE (13:10)
[2016-09-16] MEDS ORDERED: MIDAZOLAM 1 MG/ML 2 ML INJ ONE (13:11)
[2016-09-16] MEDS ORDERED: FENTAnyl 50 MCG/ML VIAL ONE (13:11)
[2016-09-16] MEDS ORDERED: HEPARIN 1000 UNITS/ML 10 ML INJ ONE (13:11)
--- NOTE | 2016-09-16 13:24 | PN ---
DATE: 09/16/2016 SUBJECTIVE: The patient is clinically stable. The patient had minimal dialysis yesterday due to ca theter malfunction, pending Perm-A-Cath today. I spoke with the patient again informing them that h e will likely need a renal biopsy which will be scheduled for the end of this week. We will otherwi se continue to monitor for any signs of recovery. The patient's serological workup to date has been negative. OBJECTIVE: VITAL SIGNS: Blood pressure is 161/102, respiration 18, pulse 103, temperature 98.1. HEENT: Head is normocephalic. NECK: Supple. HEART: Regular rate. LUNGS: Show diminished breath sounds at base. ABDOMEN: Soft, nontender to palpation. No rebound or guarding. EXTREMITIES: Negative for clubbing, cyanosis. No edema. DERMATOLOGIC: No rashes. MUSCULOSKELETAL: No joint effusions. NEUROLOGIC: No focal deficits. LABORATORY DATA: Shows sodium 142, potassium 4.4, chloride 104, BUN 160, creatinine 14.69. White c ount 9.9, hemoglobin 9.5, hematocrit 26, platelet count 187. ASSESSMENT AND PLAN: 1. Advanced renal failure, likely end-stage renal disease. The patient's workup has been negative for any findings suggestive of acute glomerulonephritis or vasculitis. The patient's serological da ta has been negative compliments negative [place], ANCA, anti-double stranded DNA have been negative. T he patient's renal ultrasound also shows markedly echogenicity consistent with chronic kidney diseas e. At this point, the patient is on dialysis, been receiving daily dialysis for solute clearance an d volume removal. Will anticipate possible renal biopsy at the end of this week as patient's uremia is improving and blood pressure is better controlled. We will continue to monitor closely. 2. Hypertension. Blood pressure remains elevated, will adjust patient's blood pressure medications , Procardia 30 mg b.i.d. Continue ultrafiltration dialysis. 3. Anemia of chronic disease. Continue to monitor H and H levels. Will give Epogen as needed. 4. Mineral bone disorder. Continue to monitor calcium and phosphorus levels. Continue phos binder s. 5. Metabolic acidosis, resolved. 6. Seizure likely secondary to uremia. Continue to monitor. 7. History of craniotomy as a child. Dictated By: DELVIS LIANG/TRUDI Conf#: [id number] [facility]#: [id number]
--- NOTE | 2016-09-16 14:00 | OPR ---
DATE OF OPERATION: 09/16/2016 PREOPERATIVE DIAGNOSIS: Renal failure. POSTOPERATIVE DIAGNOSIS: Renal failure. OPERATION PERFORMED: 1. Right internal jugular vein tunneled hemodialysis catheter placement. 2. Ultrasound guidance into the central vein. 3. Catheter introduction into the superior vena cava. 4. Superior venacavogram. 5. Interpretation and supervision of superior venacavogram. 6. Conscious sedation for 1 hour. 7. Fluoroscopy. SURGEON: Jarred Hammer MD ANESTHESIA: Local plus IV sedation. CONSENT: Risks, benefits, complications, alternative therapies explained to the patient and the [facility] danica, consent obtained. OPERATIVE TECHNIQUE: The patient was placed in supine position, prepped and draped in usual sterile fashion. Timeout was called and I started. Under ultrasonic guidance, access was gained in the right internal jugular vein. Guidewire was adva nced through without any difficulty. Subcutaneous tissues dilated. A 24 cm tunneled hemodialysis c atheter was brought into the subcutaneous tunnel, advanced into the right internal jugular vein and superior vena cava, all under fluoroscopic guidance. The tip was placed at the junction of the supe rior vena cava and right atrium. Both ports of the catheter were aspirated and injected using hepar inized saline solution. Contrast venography was done which showed no evidence of any blood clot in the superior vena cava. No extravasation. The catheter was secured to skin using 2-0 nylon sutures . The neck site and the exit site were closed using a single 3-0 Vicryl suture in interrupted fashi on. Patient tolerated procedure well. Dictated By: JARRED CUENCA/TRUDI Conf#: [id number] [facility]#: [id number]
--- NOTE | 2016-09-16 16:10 | PN ---
Date/Time of Note Date/Time of Note DATE: 09/16/16 TIME: 16:08 Assessment/Plan VTE Prophylaxis VTE Prophylaxis Intervention: heparin Lines/Catheters IV Catheter Type (from Nrsg): luna catheter Assessment/Plan Assessment/Plan 1. Seizure disorder, likely uremia related, on keppra, follow up with neurology 2. Acute on chronic renal failure, follow up with nephrology, HD started on 2016 3. Normocytic anemia, CKD related, on epogen 4. Hypertension, renal failure repated, on norvasc 5. h/o left craniotomy at 4 years old with right hand weakness 6. DVT prophylaxis: heparin discharge when outpatient HD arranged Subjective 24 Hr Interval Summary Free Text/Dictation no seizures Exam/Review of Systems Vital Signs Vitals Vital Signs Date Time Temp Pulse Resp B/P Pulse Ox O2 Delivery O2 Flow Rate FiO2 09/16/16 11:30 99 09/16/16 11:30 18 09/16/16 07:58 98.1 161/102 96 09/15/16 20:30 Room Air Intake and Output 09/15/16 09/15/16 09/16/16 15:00 23:00 07:00 Intake Total 600 ml 1420 ml 300 ml Output Total 800 ml 800 ml Balance -200 ml 620 ml 300 ml Exam Constitutional: alert, oriented, well developed Psych: nl mood/affect, no complaints Head: atraumatic, normocephalic Eyes: EOMI, PERRL, nl conjunctiva, nl lids ENMT: nl external ears & nose, nl lips & teeth, nl nasal mucosa & septum Neck: non-tender, supple Respiratory: clear to auscultation, normal air movement, No congested cough, No crackles/rales, No diminished breath sounds, No intercostal retraction, No labored breathing, No other, No respirations, No tactile fremitus, No wheezing Cardiovascular: diastolic murmur, nl pulses, regular rate and rhythm, No S3, No S4, No bruits, No edema, No gallop, No irregular rhythm, No jugular venous distention (JVD), No murmurs/extra sounds, No other, No rub, No systolic murmur Gastrointestinal: nl liver, spleen, non-tender, soft, No ascites, No bowel sounds, No distended, No firm, No hepatomegaly, No mass , No other, No rebound or guarding, No splenomegaly, No surgical scars, No tender Musculoskeletal: nl extremities to inspection Extremities: normal pulses, No calf tenderness, No clubbing, No cyanosis, No edema, No other, No palpable cord, No pitting pedal edema, No tenderness Neurological: BIOLOGICAL SCIENCE AIDE II-XII intact, nl mental status, nl speech, nl strength Skin: nl turgor Lymph: nl lymph nodes Results Result Diagram: 09/16/16 0840 09/16/16 0840 Results 24 hrs Laboratory Tests Test 09/16/16 08:40 White Blood Count 9.0 # Red Blood Count 3.04 L Hemoglobin 8.5 L Hematocrit 26.8 L Mean Corpuscular Volume 88.2 Mean Corpuscular Hemoglobin 28.0 L Mean Corpuscular Hemoglobin Concent 31.7 L Red Cell Distribution Width 14.1 Platelet Count 187 Mean Platelet Volume 11.4 H Neutrophils % 79.0 H Lymphocytes % 10.7 L Monocytes % 9.7 Eosinophils % 0.1 Basophils % 0.2 Nucleated Red Blood Cells % 0.0 Neutrophils # 7.1 Lymphocytes # 1.0 Monocytes # 0.9 Eosinophils # 0.0 Basophils # 0.0 Nucleated Red Blood Cells # 0.0 Sodium Level 142 Potassium Level 4.4 Chloride Level 105 Carbon Dioxide Level 21 Anion Gap 20 H Blood Urea Nitrogen 116 H Creatinine 14.69 H Glucose Level 103 Calcium Level 8.3 L Medications Medications Current Medications Ondansetron HCl (Zofran Inj) 4 mg Q6H PRN IV NAUSEA AND/OR VOMITING; Start 09/13 at 10:30 Acetaminophen (Tylenol Tab) 650 mg Q6H PRN PO PAIN LEVEL 1-3 OR FEVER; Start at 10:30 Acetaminophen/ Hydrocodone Bitart ([place] (5/325)) 1 tab Q6H PRN PO MODERATE PAIN LEVEL 4-6 Last administered on 09/15/16 12:54; Admin Dose 1 TAB; Start 09/13 at 10:30 Morphine Sulfate (morphine) 2 mg Q4H PRN IV SEVERE PAIN LEVEL 7-10 Last administered on 09/16/16 06:38; Admin Dose 2 MG; Start 09/13/16 at 10:30 Docusate Sodium (Colace) 100 mg Q12H PRN PO CONSTIPATION; Start 09/13/16 at 10: 30 Magnesium Hydroxide (Milk Of Mag) 30 ml DAILY PRN PO CONSTIPATION; Start at 10:30 Sodium Biphosphate/ Sodium Phosphate (Fleet Enema) 133 ml DAILY PRN [place] CONSTIPATION; Start 09/13/16 at 10:30 Pantoprazole (Protonix Tab) 40 mg DAILY@06 PO Last administered on 09/15/16 05: 26; Admin Dose 40 MG; Start 09/14/16 at 06:00 Heparin Sodium (Porcine) (Heparin (5000 Units/0.5 ml)) 5,000 unit Q12 SC Last administered on 09/15/16 21:11; Admin Dose 5,000 UNIT; Start 09/13/16 at 21:00 Lorazepam (Ativan) 0.5 mg Q6H PRN IV ANXIETY; Start 09/13/16 at 10:30 Hydralazine HCl (Apresoline) 10 mg Q6H PRN IV ELEVATED BLOOD PRESSURE Last administered on 09/15/16 21:12; Admin Dose 10 MG; Start 09/13/16 at 10:30 Clonidine (Catapres) 0.1 mg Q6H PRN PO ELEVATED BLOOD PRESSURE Last administered on 09/13/16 20:09; Admin Dose 0.1 MG; Start 09/13/16 at 10:30 Nitroglycerin 1 tab 1 tab Q5M PRN SL ANGINA; Start 09/13/16 at 10:30 Levetiracetam (Keppra 500 Mg/ 100ml (Pmx)) 100 ml @ 400 mls/hr DAILY IVPB Last administered on 09/16/16 09:23; Admin Dose 400 MLS/HR; Start 09/14/16 at 09: 00 Nifedipine (Procardia Xl) 30 mg BID PO ; Start 09/16/16 at 21:00 Carvedilol (Coreg) 6.25 mg BID PO ; Start 09/16/16 at 21:00 NILE FOOTE MD Sep 16, 2016 16:10
[2016-09-16] MEDS: HYDROCODONE/APAP (5/325) TAB PO PRN ×2 (16:41→22:48)
[2016-09-16] MEDS: NIFEdipine (XL) 30 MG TAB PO SCH (21:46)
[2016-09-17] VITALS (8 sets, daily range): BP systolic 110–139; BP diastolic 68–85; PULSE 80–88; RESP 20
[2016-09-17] MEDS: PANTOPRAZOLE (EC) 40 MG TAB PO SCH (05:52)
[2016-09-17] MEDS: LEVETIRACETAM 500 MG (PMX) 100 ML IVPB SCH ×2 (08:01→12:39)
[2016-09-17] MEDS: SEVELAMER 800 MG TAB PO SCH ×3 (08:02→16:55)
[2016-09-17] MEDS: HEPARIN 5,000 UNIT/0.5 ML VIAL SC SCH ×2 (08:06→21:05)
[2016-09-17] MEDS: NIFEdipine (XL) 30 MG TAB PO SCH ×2 (08:07→21:05)
[2016-09-17 10:22] LABS: ADD SCAN DIFF NO
[2016-09-17 10:24] LABS: BASOPHILS % 0.2 % (0.0-2.0); EOSINOPHILS % 0.4 % (0.0-7.0); HEMATOCRIT 25.7 % (42.0-52.0); HEMOGLOBIN 8.1 g/dl (14.0-18.0); LYMPHOCYTES % 18.7 % (15.0-51.0); MEAN CORPUSCULAR HEMOGLOBIN 28.3 pg (29.0-33.0); MEAN CORPUSCULAR HGB CONC 31.5 g/dl (32.0-37.0); MEAN CORPUSCULAR VOLUME 89.9 fl (82.0-101.0); MEAN PLATELET VOLUME 11.7 fl (7.4-10.4); MONOCYTE # 0.3 10^3/ul (0.3-0.9); MONOCYTES % 6.1 % (0.0-11.0); NEUTROPHIL # 3.9 10^3/ul (1.6-7.5); NEUTROPHILS % 74.2 % (39.0-77.0); PLATELET COUNT 189 10^3/UL (140-415); RED BLOOD COUNT 2.86 10^6/ul (4.70-6.10); WHITE BLOOD COUNT 5.3 10^3/ul (4.8-10.8)
[2016-09-17 10:38] LABS: POTASSIUM 3.8 mmol/L (3.5-5.1)
[2016-09-17 10:40] LABS: CREATININE 12.37 mg/dl (0.61-1.24)
[2016-09-17 10:41] LABS: CALCIUM 8.8 mg/dl (8.4-10.2)
--- NOTE | 2016-09-17 15:20 | PN ---
Date/Time of Note Date/Time of Note DATE: 09/17/16 TIME: 15:18 Assessment/Plan VTE Prophylaxis VTE Prophylaxis Intervention: heparin Lines/Catheters IV Catheter Type (from Nrsg): permacath Assessment/Plan Assessment/Plan 1. Seizure disorder, likely uremia related, on keppra, follow up with neurology 2. Acute on chronic renal failure, follow up with nephrology, HD started on 2016 3. Normocytic anemia, CKD related, on epogen 4. Hypertension, renal failure repated, on norvasc 5. h/o left craniotomy at 4 years old with right hand weakness 6. DVT prophylaxis: heparin 7. discharge when outpatient HD arranged, talked to shoe parts caser Subjective 24 Hr Interval Summary Free Text/Dictation no seizure, no complaint Exam/Review of Systems Vital Signs Vitals Vital Signs Date Time Temp Pulse Resp B/P Pulse Ox O2 Delivery O2 Flow Rate FiO2 09/17/16 12:15 84 17 09/17/16 08:24 99.1 134/75 95 09/15/16 20:30 Room Air Intake and Output 09/16/16 09/16/16 09/17/16 15:00 23:00 07:00 Intake Total 600 ml 680 ml 240 ml Output Total 3500 ml 3000 ml Balance -2900 ml -2320 ml 240 ml Exam Constitutional: oriented, well developed Psych: nl mood/affect, no complaints Head: atraumatic, normocephalic Eyes: EOMI, PERRL, nl conjunctiva, nl lids ENMT: nl external ears & nose, nl lips & teeth, nl nasal mucosa & septum Neck: non-tender, supple Respiratory: clear to auscultation, normal air movement, No congested cough, No crackles/rales, No diminished breath sounds, No intercostal retraction, No labored breathing, No other, No respirations, No tactile fremitus, No wheezing Cardiovascular: nl pulses, regular rate and rhythm, No S3, No S4, No bruits, No diastolic murmur, No edema, No gallop, No irregular rhythm, No jugular venous distention (JVD), No murmurs/extra sounds, No other, No rub, No systolic murmur Gastrointestinal: nl liver, spleen, non-tender, soft, No ascites, No bowel sounds, No distended, No firm, No hepatomegaly, No mass , No other, No rebound or guarding, No splenomegaly, No surgical scars, No tender Musculoskeletal: nl extremities to inspection Extremities: normal pulses, No calf tenderness, No clubbing, No cyanosis, No edema, No other, No palpable cord, No pitting pedal edema, No tenderness Neurological: SCAFFOLDER II-XII intact, nl mental status, nl speech, nl strength Skin: nl turgor Lymph: nl lymph nodes Results Result Diagram: 09/17/16 0950 09/17/16 0950 Results 24 hrs Laboratory Tests Test 09/17/16 09:50 09/17/16 12:41 White Blood Count 5.3 # Red Blood Count 2.86 L Hemoglobin 8.1 L Hematocrit 25.7 L Mean Corpuscular Volume 89.9 Mean Corpuscular Hemoglobin 28.3 L Mean Corpuscular Hemoglobin Concent 31.5 L Red Cell Distribution Width 14.0 Platelet Count 189 Mean Platelet Volume 11.7 H Neutrophils % 74.2 Lymphocytes % 18.7 Monocytes % 6.1 Eosinophils % 0.4 Basophils % 0.2 Nucleated Red Blood Cells % 0.0 Neutrophils # 3.9 Lymphocytes # 1.0 Monocytes # 0.3 Eosinophils # 0.0 Basophils # 0.0 Nucleated Red Blood Cells # 0.0 Sodium Level 142 Potassium Level 3.8 Chloride Level 102 Carbon Dioxide Level 23 Anion Gap 21 H Blood Urea Nitrogen 97 H Creatinine 12.37 #H Glucose Level 145 # Calcium Level 8.8 Lab Scanned Report REFERENCE LAB Medications Medications Current Medications Ondansetron HCl (Zofran Inj) 4 mg Q6H PRN IV NAUSEA AND/OR VOMITING; Start 09/13 at 10:30 Acetaminophen (Tylenol Tab) 650 mg Q6H PRN PO PAIN LEVEL 1-3 OR FEVER; Start at 10:30 Acetaminophen/ Hydrocodone Bitart ([place] (5/325)) 1 tab Q6H PRN PO MODERATE PAIN LEVEL 4-6 Last administered on 09/16/16 22:48; Admin Dose 1 TAB; Start 09/13 at 10:30 Morphine Sulfate (morphine) 2 mg Q4H PRN IV SEVERE PAIN LEVEL 7-10 Last administered on 09/16/16 06:38; Admin Dose 2 MG; Start 09/13/16 at 10:30 Docusate Sodium (Colace) 100 mg Q12H PRN PO CONSTIPATION; Start 09/13/16 at 10: 30 Magnesium Hydroxide (Milk Of Mag) 30 ml DAILY PRN PO CONSTIPATION; Start at 10:30 Sodium Biphosphate/ Sodium Phosphate (Fleet Enema) 133 ml DAILY PRN [place] CONSTIPATION; Start 09/13/16 at 10:30 Pantoprazole (Protonix Tab) 40 mg DAILY@06 PO Last administered on 09/17/16 05: 52; Admin Dose 40 MG; Start 09/14/16 at 06:00 Heparin Sodium (Porcine) (Heparin (5000 Units/0.5 ml)) 5,000 unit Q12 SC Last administered on 09/17/16 08:06; Admin Dose 5,000 UNIT; Start 09/13/16 at 21:00 Lorazepam (Ativan) 0.5 mg Q6H PRN IV ANXIETY; Start 09/13/16 at 10:30 Hydralazine HCl (Apresoline) 10 mg Q6H PRN IV ELEVATED BLOOD PRESSURE Last administered on 09/15/16 21:12; Admin Dose 10 MG; Start 09/13/16 at 10:30 Clonidine (Catapres) 0.1 mg Q6H PRN PO ELEVATED BLOOD PRESSURE Last administered on 09/13/16 20:09; Admin Dose 0.1 MG; Start 09/13/16 at 10:30 Nitroglycerin 1 tab 1 tab Q5M PRN SL ANGINA; Start 09/13/16 at 10:30 Levetiracetam (Keppra 500 Mg/ 100ml (Pmx)) 100 ml @ 400 mls/hr DAILY IVPB Last administered on 09/17/16 08:01; Admin Dose 400 MLS/HR; Start 09/14/16 at 09: 00 Nifedipine (Procardia Xl) 30 mg BID PO Last administered on 09/16/16 21:46; Admin Dose 30 MG; Start 09/16/16 at 21:00 Carvedilol (Coreg) 6.25 mg BID PO Last administered on 09/16/16 21:46; Admin Dose 6.25 MG; Start 09/16/16 at 21:00 NILE FOOTE MD Sep 17, 2016 15:20
--- NOTE | 2016-09-17 15:35 | CONS ---
Date/Time of Note Date/Time of Note DATE: 09/17/16 TIME: 15:29 Consult Date/Type/Reason Admit Date/Time Sep 13, 2016 at 09:09 Initial Consult Date Type of Consultation: neph Subjective The patient is clinically stable. The patient had minimal dialysis 2 days ago due to catheter malfunction, now sp Perm-A-Cath. I spoke with the patient again informing them that he will likely need a renal biopsy which will be scheduled for tomorrow. We will otherwise continue to monitor for any signs of recovery. poc reviewed with dr. diamond. The patient's serological workup to date has been negative. OBJECTIVE: HEENT: Head is normocephalic. NECK: Supple. HEART: Regular rate. LUNGS: Show diminished breath sounds at base. ABDOMEN: Soft, nontender to palpation. No rebound or guarding. EXTREMITIES: Negative for clubbing, cyanosis. No edema. DERMATOLOGIC: No rashes. MUSCULOSKELETAL: No joint effusions. NEUROLOGIC: No focal deficits. Objective Vital Signs Date Time Temp Pulse Resp B/P Pulse Ox O2 Delivery O2 Flow Rate FiO2 09/17/16 12:15 84 17 09/17/16 08:24 99.1 134/75 95 09/15/16 20:30 Room Air Intake and Output 09/16/16 09/16/16 09/17/16 15:00 23:00 07:00 Intake Total 600 ml 680 ml 240 ml Output Total 3500 ml 3000 ml Balance -2900 ml -2320 ml 240 ml Results/Medications Result Diagram: 09/17/16 0950 09/17/16 0950 Results 24 hrs Laboratory Tests Test 09/17/16 09:50 09/17/16 12:41 White Blood Count 5.3 # Red Blood Count 2.86 L Hemoglobin 8.1 L Hematocrit 25.7 L Mean Corpuscular Volume 89.9 Mean Corpuscular Hemoglobin 28.3 L Mean Corpuscular Hemoglobin Concent 31.5 L Red Cell Distribution Width 14.0 Platelet Count 189 Mean Platelet Volume 11.7 H Neutrophils % 74.2 Lymphocytes % 18.7 Monocytes % 6.1 Eosinophils % 0.4 Basophils % 0.2 Nucleated Red Blood Cells % 0.0 Neutrophils # 3.9 Lymphocytes # 1.0 Monocytes # 0.3 Eosinophils # 0.0 Basophils # 0.0 Nucleated Red Blood Cells # 0.0 Sodium Level 142 Potassium Level 3.8 Chloride Level 102 Carbon Dioxide Level 23 Anion Gap 21 H Blood Urea Nitrogen 97 H Creatinine 12.37 #H Glucose Level 145 # Calcium Level 8.8 Lab Scanned Report REFERENCE LAB Medications Current Medications Ondansetron HCl (Zofran Inj) 4 mg Q6H PRN IV NAUSEA AND/OR VOMITING; Start 09/13 at 10:30 Acetaminophen (Tylenol Tab) 650 mg Q6H PRN PO PAIN LEVEL 1-3 OR FEVER; Start at 10:30 Acetaminophen/ Hydrocodone Bitart ([place] (5/325)) 1 tab Q6H PRN PO MODERATE PAIN LEVEL 4-6 Last administered on 09/16/16 22:48; Admin Dose 1 TAB; Start 09/13 at 10:30 Morphine Sulfate (morphine) 2 mg Q4H PRN IV SEVERE PAIN LEVEL 7-10 Last administered on 09/16/16 06:38; Admin Dose 2 MG; Start 09/13/16 at 10:30 Docusate Sodium (Colace) 100 mg Q12H PRN PO CONSTIPATION; Start 09/13/16 at 10: 30 Magnesium Hydroxide (Milk Of Mag) 30 ml DAILY PRN PO CONSTIPATION; Start at 10:30 Sodium Biphosphate/ Sodium Phosphate (Fleet Enema) 133 ml DAILY PRN [place] CONSTIPATION; Start 09/13/16 at 10:30 Pantoprazole (Protonix Tab) 40 mg DAILY@06 PO Last administered on 09/17/16 05: 52; Admin Dose 40 MG; Start 09/14/16 at 06:00 Heparin Sodium (Porcine) (Heparin (5000 Units/0.5 ml)) 5,000 unit Q12 SC Last administered on 09/17/16 08:06; Admin Dose 5,000 UNIT; Start 09/13/16 at 21:00 Lorazepam (Ativan) 0.5 mg Q6H PRN IV ANXIETY; Start 09/13/16 at 10:30 Hydralazine HCl (Apresoline) 10 mg Q6H PRN IV ELEVATED BLOOD PRESSURE Last administered on 09/15/16 21:12; Admin Dose 10 MG; Start 09/13/16 at 10:30 Clonidine (Catapres) 0.1 mg Q6H PRN PO ELEVATED BLOOD PRESSURE Last administered on 09/13/16 20:09; Admin Dose 0.1 MG; Start 09/13/16 at 10:30 Nitroglycerin 1 tab 1 tab Q5M PRN SL ANGINA; Start 09/13/16 at 10:30 Levetiracetam (Keppra 500 Mg/ 100ml (Pmx)) 100 ml @ 400 mls/hr DAILY IVPB Last administered on 09/17/16 08:01; Admin Dose 400 MLS/HR; Start 09/14/16 at 09: 00 Nifedipine (Procardia Xl) 30 mg BID PO Last administered on 09/16/16 21:46; Admin Dose 30 MG; Start 09/16/16 at 21:00 Carvedilol (Coreg) 6.25 mg BID PO Last administered on 09/16/16 21:46; Admin Dose 6.25 MG; Start 09/16/16 at 21:00 Assessment/Plan Chief Complaint/Hosp Course ASSESSMENT AND PLAN: 1. Advanced renal failure, likely end-stage renal disease. The patient's workup has been negative for any findings suggestive of acute glomerulonephritis or vasculitis. The patient's serological data has been negative compliments negative ST[place]FORD, ANCA, anti-double stranded DNA have been negative. The patient's renal ultrasound also shows markedly echogenicity consistent with chronic kidney disease. At this point, the patient is on dialysis, been receiving daily dialysis for solute clearance and volume removal. Will anticipate possible renal biopsy at the end of this week as patient's uremia is improving and blood pressure is better controlled. We will continue to monitor closely. 2. Hypertension. Blood pressure remains elevated, will adjust patient's blood pressure medications, Procardia 30 mg b.i.d. Continue ultrafiltration dialysis. 3. Anemia of chronic disease. Continue to monitor H and H levels. Will give Epogen as needed. 4. Mineral bone disorder. Continue to monitor calcium and phosphorus levels. Continue phos binders. 5. Metabolic acidosis, resolved. 6. Seizure likely secondary to uremia. Continue to monitor. 7. History of craniotomy as a child. Problems: JESÚS PAYNE MD Sep 17, 2016 15:35
[2016-09-17] MEDS: EPOETIN 10000 UNITS/1 ML INJ (ESRD) SC SCH (16:55)
--- NOTE | 2016-09-17 19:55 | PN ---
Date/Time of Note Date/Time of Note DATE: 09/17/16 TIME: 19:54 Assessment/Plan Lines/Catheters IV Catheter Type (from Nrsg): permacath Assessment/Plan Chief Complaint/Hosp Course ESRD SO HD cath placement will continue dialysis May need AVF placement will discuss with Dr Larry Problems: Subjective 24 Hr Interval Summary Constitutional: improved Pain Control: mild Exam/Review of Systems Vital Signs Vitals Vital Signs Date Time Temp Pulse Resp B/P Pulse Ox O2 Delivery O2 Flow Rate FiO2 09/17/16 12:15 84 17 09/17/16 08:24 99.1 134/75 95 09/15/16 20:30 Room Air Intake and Output 09/16/16 09/16/16 09/17/16 15:00 23:00 07:00 Intake Total 600 ml 680 ml 240 ml Output Total 3500 ml 3000 ml Balance -2900 ml -2320 ml 240 ml Exam Neck: non-tender, supple Respiratory: clear to auscultation, normal air movement Cardiovascular: nl pulses, regular rate and rhythm Gastrointestinal: nl liver, spleen, non-tender, soft Results Result Diagram: 09/17/16 0950 09/17/16 0950 MALEJILLIAN ALEGRIA MD Sep 17, 2016 19:55
[2016-09-18] VITALS (8 sets, daily range): BP systolic 106–134; BP diastolic 66–83; PULSE 106–112; RESP 16–20
[2016-09-18] MEDS: PANTOPRAZOLE (EC) 40 MG TAB PO SCH (05:32)
[2016-09-18 06:06] LABS: ALBUMIN 4.1 g/dl (3.3-4.9)
[2016-09-18 06:07] LABS: POTASSIUM 4.3 mmol/L (3.5-5.1)
[2016-09-18 06:09] LABS: ALBUMIN/GLOBULIN RATIO 1.13; BILIRUBIN,INDIRECT 0.3 mg/dl (0-1.1); BILIRUBIN,TOTAL 0.3 mg/dl (0.2-1.3); CREATININE 11.82 mg/dl (0.61-1.24); TOTAL PROTEIN 7.7 g/dl (6.1-8.1)
[2016-09-18] MEDS: SEVELAMER 800 MG TAB PO SCH ×3 (07:35→17:26)
[2016-09-18 08:17] LABS: MAGNESIUM 1.8 mg/dl (1.7-2.5); PHOSPHORUS 8.2 mg/dl (2.5-4.9)
[2016-09-18] MEDS: HEPARIN 5,000 UNIT/0.5 ML VIAL SC SCH ×2 (08:52→20:47)
[2016-09-18] MEDS: NIFEdipine (XL) 30 MG TAB PO SCH ×2 (08:52→20:44)
[2016-09-18] MEDS: LEVETIRACETAM 500 MG (PMX) 100 ML IVPB SCH (09:41)
[2016-09-18 11:15] LABS: ADD SCAN DIFF NO
[2016-09-18 11:25] LABS: BASOPHILS % 0.2 % (0.0-2.0); EOSINOPHILS % 0.3 % (0.0-7.0); HEMATOCRIT 27.1 % (42.0-52.0); HEMOGLOBIN 8.3 g/dl (14.0-18.0); LYMPHOCYTES # 1.6 10^3/ul (0.8-2.9); LYMPHOCYTES % 14.2 % (15.0-51.0); MEAN CORPUSCULAR HEMOGLOBIN 28.3 pg (29.0-33.0); MEAN CORPUSCULAR HGB CONC 30.6 g/dl (32.0-37.0); MEAN CORPUSCULAR VOLUME 92.5 fl (82.0-101.0); MEAN PLATELET VOLUME 12.2 fl (7.4-10.4); MONOCYTE # 1.5 10^3/ul (0.3-0.9); MONOCYTES % 12.6 % (0.0-11.0); NEUTROPHIL # 8.3 10^3/ul (1.6-7.5); NEUTROPHILS % 72.4 % (39.0-77.0); PLATELET COUNT 200 10^3/UL (140-415); RED BLOOD COUNT 2.93 10^6/ul (4.70-6.10); RED CELL DISTRIBUTION WIDTH 13.7 % (11.5-14.5); WHITE BLOOD COUNT 11.5 10^3/ul (4.8-10.8)
--- NOTE | 2016-09-18 13:33 | PN ---
Date/Time of Note Date/Time of Note DATE: 09/18/16 TIME: 13:31 Assessment/Plan VTE Prophylaxis VTE Prophylaxis Intervention: other Lines/Catheters [facility] Saline Lock Assessment/Plan Assessment/Plan 1. Advanced renal failure, likely end-stage renal disease. The patient's workup has been negative for any findings suggestive of acute glomerulonephritis or vasculitis. The patient's serological data has been negative compliments negative [place], ANCA, anti-double stranded DNA have been negative. The patient's renal ultrasound also shows markedly echogenicity consistent with chronic kidney disease. At this point, the patient is on dialysis. Biopsy today. Hd in am 2. Hypertension. Blood pressure remains elevated, will adjust patient's blood pressure medications, Procardia 30 mg b.i.d. Continue ultrafiltration dialysis. 3. Anemia of chronic disease. Continue to monitor H and H levels. Will give Epogen as needed. 4. Mineral bone disorder. Continue to monitor calcium and phosphorus levels. Continue phos binders. 5. Metabolic acidosis, resolved. 6. Seizure likely secondary to uremia. Continue to monitor. 7. History of craniotomy as a child. Subjective 24 Hr Interval Summary Free Text/Dictation renal follow up The patient is clinically stable. The patient had dialysis yesterday. He is having kidney biopsy today. We will otherwise continue to monitor for any signs of recovery. poc reviewed with dr. diamond. The patient's serological workup to date has been negative. OBJECTIVE: HEENT: Head is normocephalic. NECK: Supple. HEART: Regular rate. LUNGS: Show diminished breath sounds at base. ABDOMEN: Soft, nontender to palpation. No rebound or guarding. EXTREMITIES: Negative for clubbing, cyanosis. No edema. DERMATOLOGIC: No rashes. MUSCULOSKELETAL: No joint effusions. NEUROLOGIC: No focal deficits. Exam/Review of Systems Vital Signs Vitals Vital Signs Date Time Temp Pulse Resp B/P Pulse Ox O2 Delivery O2 Flow Rate FiO2 09/18/16 12:57 111 18 122/79 97 Room Air 09/18/16 08:21 98.1 Intake and Output 09/17/16 09/17/16 09/18/16 15:00 23:00 07:00 Intake Total 600 ml 1060 ml 450 ml Output Total 3400 ml Balance -2800 ml 1060 ml 450 ml Results Result Diagram: 09/18/16 0500 09/18/16 0500 Results 24 hrs Laboratory Tests Test 09/18/16 05:00 White Blood Count 11.5 #H Red Blood Count 2.93 L Hemoglobin 8.3 L Hematocrit 27.1 L Mean Corpuscular Volume 92.5 Mean Corpuscular Hemoglobin 28.3 L Mean Corpuscular Hemoglobin Concent 30.6 L Red Cell Distribution Width 13.7 Platelet Count 200 Mean Platelet Volume 12.2 H Neutrophils % 72.4 Lymphocytes % 14.2 L Monocytes % 12.6 H Eosinophils % 0.3 Basophils % 0.2 Nucleated Red Blood Cells % 0.0 Neutrophils # 8.3 H Lymphocytes # 1.6 Monocytes # 1.5 H Eosinophils # 0.0 Basophils # 0.0 Nucleated Red Blood Cells # 0.0 Sodium Level 144 Potassium Level 4.3 Chloride Level 99 Carbon Dioxide Level 24 Anion Gap 25 H Blood Urea Nitrogen 76 H Creatinine 11.82 H Glucose Level 112 Calcium Level 9.0 Phosphorus Level 8.2 H Magnesium Level 1.8 Total Bilirubin 0.3 Direct Bilirubin 0.00 Indirect Bilirubin 0.3 Aspartate Amino Transf (AST/SGOT) 11 L Alanine Aminotransferase (ALT/SGPT) 15 Alkaline Phosphatase 75 Total Protein 7.7 Albumin 4.1 Globulin 3.60 H Albumin/Globulin Ratio 1.13 Medications Medications Current Medications Ondansetron HCl (Zofran Inj) 4 mg Q6H PRN IV NAUSEA AND/OR VOMITING; Start 09/13 at 10:30 Acetaminophen (Tylenol Tab) 650 mg Q6H PRN PO PAIN LEVEL 1-3 OR FEVER; Start at 10:30 Acetaminophen/ Hydrocodone Bitart ([place] (5/325)) 1 tab Q6H PRN PO MODERATE PAIN LEVEL 4-6 Last administered on 09/16/16 22:48; Admin Dose 1 TAB; Start 09/13 at 10:30 Morphine Sulfate (morphine) 2 mg Q4H PRN IV SEVERE PAIN LEVEL 7-10 Last administered on 09/16/16 06:38; Admin Dose 2 MG; Start 09/13/16 at 10:30 Docusate Sodium (Colace) 100 mg Q12H PRN PO CONSTIPATION; Start 09/13/16 at 10: 30 Magnesium Hydroxide (Milk Of Mag) 30 ml DAILY PRN PO CONSTIPATION; Start at 10:30 Sodium Biphosphate/ Sodium Phosphate (Fleet Enema) 133 ml DAILY PRN [place] CONSTIPATION; Start 09/13/16 at 10:30 Pantoprazole (Protonix Tab) 40 mg DAILY@06 PO Last administered on 09/18/16 05: 32; Admin Dose 40 MG; Start 09/14/16 at 06:00 Heparin Sodium (Porcine) (Heparin (5000 Units/0.5 ml)) 5,000 unit Q12 SC Last administered on 09/17/16 21:05; Admin Dose 5,000 UNIT; Start 09/13/16 at 21:00 Lorazepam (Ativan) 0.5 mg Q6H PRN IV ANXIETY; Start 09/13/16 at 10:30 Hydralazine HCl (Apresoline) 10 mg Q6H PRN IV ELEVATED BLOOD PRESSURE Last administered on 09/15/16 21:12; Admin Dose 10 MG; Start 09/13/16 at 10:30 Clonidine (Catapres) 0.1 mg Q6H PRN PO ELEVATED BLOOD PRESSURE Last administered on 09/13/16 20:09; Admin Dose 0.1 MG; Start 09/13/16 at 10:30 Nitroglycerin (Nitroglycerin (Sl Tab) 0.4 Mg) 1 tab Q5M PRN SL ANGINA; Start at 10:30 Nifedipine (Procardia Xl) 30 mg BID PO Last administered on 09/17/16 21:05; Admin Dose 30 MG; Start 09/16/16 at 21:00 Carvedilol 6.25 mg 6.25 mg BID PO Last administered on 09/17/16 21:04; Admin Dose 6.25 MG; Start 09/16/16 at 21:00 Levetiracetam (Keppra 500 Mg/ 100ml (Pmx)) 100 ml @ 400 mls/hr DAILY IVPB Last administered on 09/18/16 09:41; Admin Dose 400 MLS/HR; Start 09/18/16 at 10: 00 AZALEA MCNALLY DO Sep 18, 2016 13:33
[2016-09-18] MEDS ORDERED: LIDOCAINE 1% (MDV) 20 ML INJ ONE (13:59)
[2016-09-18] MEDS ORDERED: MIDAZOLAM 1 MG/ML 2 ML INJ ONE (13:59)
[2016-09-18] MEDS ORDERED: GELATIN 12MM X 7 MM SPONGE ONE (13:59)
[2016-09-18] MEDS ORDERED: DIPHENHYDRAMINE 50 MG INJ ONE (14:00)
[2016-09-18] MEDS ORDERED: FENTAnyl 50 MCG/ML VIAL ONE (14:00)
--- NOTE | 2016-09-18 16:18 | PN ---
Date/Time of Note Date/Time of Note DATE: 09/18/16 TIME: 16:16 Assessment/Plan VTE Prophylaxis VTE Prophylaxis Intervention: heparin Lines/Catheters IV Catheter Type (from Nrsg): Saline Lock Assessment/Plan Assessment/Plan 1. Seizure disorder, likely uremia related, on keppra, follow up with neurology 2. Acute on chronic renal failure, follow up with nephrology, HD started on 2016, s/p biopsy on 09/18/2016 3. Normocytic anemia, CKD related, on epogen 4. Hypertension, renal failure repated, on norvasc 5. h/o left craniotomy at 4 years old with right hand weakness 6. DVT prophylaxis: heparin Subjective 24 Hr Interval Summary Free Text/Dictation s/p kidney biopsy today Exam/Review of Systems Vital Signs Vitals Vital Signs Date Time Temp Pulse Resp B/P Pulse Ox O2 Delivery O2 Flow Rate FiO2 09/18/16 12:57 111 18 122/79 97 Room Air 09/18/16 08:21 98.1 Intake and Output 09/17/16 09/17/16 09/18/16 15:00 23:00 07:00 Intake Total 600 ml 1060 ml 450 ml Output Total 3400 ml Balance -2800 ml 1060 ml 450 ml Exam Constitutional: alert, oriented, well developed Psych: nl mood/affect, no complaints Head: atraumatic, normocephalic Eyes: EOMI, nl conjunctiva, nl lids ENMT: nl external ears & nose, nl lips & teeth, nl nasal mucosa & septum Neck: non-tender, supple Respiratory: clear to auscultation, normal air movement, No congested cough, No crackles/rales, No diminished breath sounds, No intercostal retraction, No labored breathing, No other, No respirations, No tactile fremitus, No wheezing Cardiovascular: nl pulses, regular rate and rhythm, No S3, No S4, No bruits, No diastolic murmur, No edema, No gallop, No irregular rhythm, No jugular venous distention (JVD), No murmurs/extra sounds, No other, No rub, No systolic murmur Gastrointestinal: nl liver, spleen, non-tender, soft, No ascites, No bowel sounds, No distended, No firm, No hepatomegaly, No mass , No other, No rebound or guarding, No splenomegaly, No surgical scars, No tender Musculoskeletal: nl extremities to inspection Extremities: normal pulses, No calf tenderness, No clubbing, No cyanosis, No edema, No other, No palpable cord, No pitting pedal edema, No tenderness Neurological: ANIMAL ANATOMIST II-XII intact, nl mental status, nl speech, nl strength Skin: nl turgor Lymph: nl lymph nodes Results Result Diagram: 09/18/16 0500 09/18/16 0500 Results 24 hrs Laboratory Tests Test 09/18/16 05:00 White Blood Count 11.5 #H Red Blood Count 2.93 L Hemoglobin 8.3 L Hematocrit 27.1 L Mean Corpuscular Volume 92.5 Mean Corpuscular Hemoglobin 28.3 L Mean Corpuscular Hemoglobin Concent 30.6 L Red Cell Distribution Width 13.7 Platelet Count 200 Mean Platelet Volume 12.2 H Neutrophils % 72.4 Lymphocytes % 14.2 L Monocytes % 12.6 H Eosinophils % 0.3 Basophils % 0.2 Nucleated Red Blood Cells % 0.0 Neutrophils # 8.3 H Lymphocytes # 1.6 Monocytes # 1.5 H Eosinophils # 0.0 Basophils # 0.0 Nucleated Red Blood Cells # 0.0 Sodium Level 144 Potassium Level 4.3 Chloride Level 99 Carbon Dioxide Level 24 Anion Gap 25 H Blood Urea Nitrogen 76 H Creatinine 11.82 H Glucose Level 112 Calcium Level 9.0 Phosphorus Level 8.2 H Magnesium Level 1.8 Total Bilirubin 0.3 Direct Bilirubin 0.00 Indirect Bilirubin 0.3 Aspartate Amino Transf (AST/SGOT) 11 L Alanine Aminotransferase (ALT/SGPT) 15 Alkaline Phosphatase 75 Total Protein 7.7 Albumin 4.1 Globulin 3.60 H Albumin/Globulin Ratio 1.13 Medications Medications Current Medications Ondansetron HCl (Zofran Inj) 4 mg Q6H PRN IV NAUSEA AND/OR VOMITING; Start 09/13 at 10:30 Acetaminophen (Tylenol Tab) 650 mg Q6H PRN PO PAIN LEVEL 1-3 OR FEVER; Start at 10:30 Acetaminophen/ Hydrocodone Bitart ([place] (5/325)) 1 tab Q6H PRN PO MODERATE PAIN LEVEL 4-6 Last administered on 09/16/16t 22:48; Admin Dose 1 TAB; Start 09/13 at 10:30 Morphine Sulfate (morphine) 2 mg Q4H PRN IV SEVERE PAIN LEVEL 7-10 Last administered on 09/16/16 06:38; Admin Dose 2 MG; Start 09/13/16 at 10:30 Docusate Sodium (Colace) 100 mg Q12H PRN PO CONSTIPATION; Start 09/13/16 at 10: 30 Magnesium Hydroxide (Milk Of Mag) 30 ml DAILY PRN PO CONSTIPATION; Start at 10:30 Sodium Biphosphate/ Sodium Phosphate (Fleet Enema) 133 ml DAILY PRN [place] CONSTIPATION; Start 09/13/16 at 10:30 Pantoprazole (Protonix Tab) 40 mg DAILY@06 PO Last administered on 09/18/16 05: 32; Admin Dose 40 MG; Start 09/14/16 at 06:00 Heparin Sodium (Porcine) (Heparin (5000 Units/0.5 ml)) 5,000 unit Q12 SC Last administered on 09/17/16 21:05; Admin Dose 5,000 UNIT; Start 09/13/16 at 21:00 Lorazepam (Ativan) 0.5 mg Q6H PRN IV ANXIETY; Start 09/13/16 at 10:30 Hydralazine HCl (Apresoline) 10 mg Q6H PRN IV ELEVATED BLOOD PRESSURE Last administered on 09/15/16 21:12; Admin Dose 10 MG; Start 09/13/16 at 10:30 Clonidine (Catapres) 0.1 mg Q6H PRN PO ELEVATED BLOOD PRESSURE Last administered on 09/13/16 20:09; Admin Dose 0.1 MG; Start 09/13/16 at 10:30 Nitroglycerin (Nitroglycerin (Sl Tab) 0.4 Mg) 1 tab Q5M PRN SL ANGINA; Start at 10:30 Nifedipine (Procardia Xl) 30 mg BID PO Last administered on 09/17/16 21:05; Admin Dose 30 MG; Start 09/16/16 at 21:00 Carvedilol 6.25 mg 6.25 mg BID PO Last administered on 09/17/16 21:04; Admin Dose 6.25 MG; Start 09/16/16 at 21:00 Levetiracetam (Keppra 500 Mg/ 100ml (Pmx)) 100 ml @ 400 mls/hr DAILY IVPB Last administered on 09/18/16 09:41; Admin Dose 400 MLS/HR; Start 09/18/16 at 10: 00 NILE FOOTE MD Sep 18, 2016 16:18
--- NOTE | 2016-09-18 17:12 | RADRPT ---
PROCEDURE: CT guided left renal biopsy. CLINICAL INDICATION: Medical renal disease. TECHNIQUE: Informed consent was obtained. The procedure, risks, benefits, complications and alternatives were explained to the patient. Risks including bleeding and infection were explained. The patient unders tood and was willing to proceed. A procedural pause was performed. The patient's name, date of lara h, and procedure to be performed were verified. One or more of the following dose reduction techni ques were used: Automated exposure control, adjustment of the mA and/or kV according to patient size , use of iterative reconstruction technique. Using local anesthetic, sterile technique and CT guidance, an 18-gauge automated core biopsy needle was used to biopsy the lower pole of the left kidney. Multiple passes were made. Adequate tissue w as obtained according to the pathologist present during the procedure. Multiple Gelfoam pledgets mi xed with normal saline were then embolized through the outer cannula of the biopsy needle into the b iopsy tract while the needle was removed. A postprocedural scan was performed. A dressing was applied. The patient tolerated procedure well. COMPARISON: None. FINDINGS: Initial images demonstrate the tip of the needle at the posterior margin of the lower pole of the le ft kidney. Post biopsy images demonstrate no immediate complication. The Gelfoam is noted in the biopsy tract. IMPRESSION: 1. Successful CT guided biopsy of the left kidney for medical renal disease. RPTAT: QQ .Vijay Eduardo MD, MD Date Time Electronically viewed and signed by .Vijay Eduardo MD, MD on 09/18/2016 17:12 .R/
[2016-09-19] VITALS (10 sets, daily range): BP systolic 102–134; BP diastolic 53–82; PULSE 84–139; RESP 16–18
[2016-09-19] MEDS: PANTOPRAZOLE (EC) 40 MG TAB PO SCH (05:22)
[2016-09-19] MEDS: SEVELAMER 800 MG TAB PO SCH ×3 (08:29→17:47)
[2016-09-19] MEDS: LEVETIRACETAM 500 MG (PMX) 100 ML IVPB SCH ×3 (08:30→11:32)
[2016-09-19] MEDS: HEPARIN 5,000 UNIT/0.5 ML VIAL SC SCH ×2 (08:32→20:34)
[2016-09-19] MEDS: NIFEdipine (XL) 30 MG TAB PO SCH ×2 (08:33→20:33)
--- NOTE | 2016-09-19 09:37 | CONS ---
Date/Time of Note Date/Time of Note DATE: 09/19/16 TIME: 09:35 Consult Date/Type/Reason Admit Date/Time Sep 13, 2016 at 09:09 Type of Consultation: neph Subjective The patient is clinically stable. The patient had kidney biopsy yesterday. He is having hd today. We will otherwise continue to monitor for any signs of recovery. poc reviewed with dr. diamond. The patient's serological workup to date has been negative. OBJECTIVE: HEENT: Head is normocephalic. NECK: Supple. HEART: Regular rate. LUNGS: Show diminished breath sounds at base. ABDOMEN: Soft, nontender to palpation. No rebound or guarding. EXTREMITIES: Negative for clubbing, cyanosis. No edema. DERMATOLOGIC: No rashes. MUSCULOSKELETAL: No joint effusions. NEUROLOGIC: No focal deficits. Objective Vital Signs Date Time Temp Pulse Resp B/P Pulse Ox O2 Delivery O2 Flow Rate FiO2 09/19/16 09:15 85 09/19/16 08:45 16 09/19/16 07:15 98.0 127/71 97 09/18/16 15:50 Room Air 09/18/16 15:00 2 Intake and Output 09/18/16 09/18/16 09/19/16 15:00 23:00 07:00 Intake Total 100 ml 480 ml 390 ml Balance 100 ml 480 ml 390 ml Results/Medications Result Diagram: 09/18/16 0500 09/18/16 0500 Medications Current Medications Ondansetron HCl (Zofran Inj) 4 mg Q6H PRN IV NAUSEA AND/OR VOMITING; Start 09/13 at 10:30 Acetaminophen (Tylenol Tab) 650 mg Q6H PRN PO PAIN LEVEL 1-3 OR FEVER; Start at 10:30 Acetaminophen/ Hydrocodone Bitart ([place] (5/325)) 1 tab Q6H PRN PO MODERATE PAIN LEVEL 4-6 Last administered on 09/16/16 22:48; Admin Dose 1 TAB; Start 09/13 at 10:30 Morphine Sulfate (morphine) 2 mg Q4H PRN IV SEVERE PAIN LEVEL 7-10 Last administered on 09/16/16 06:38; Admin Dose 2 MG; Start 09/13/16 at 10:30 Docusate Sodium (Colace) 100 mg Q12H PRN PO CONSTIPATION; Start 09/13/16 at 10: 30 Magnesium Hydroxide (Milk Of Mag) 30 ml DAILY PRN PO CONSTIPATION; Start at 10:30 Sodium Biphosphate/ Sodium Phosphate (Fleet Enema) 133 ml DAILY PRN [place] CONSTIPATION; Start 09/13/16 at 10:30 Pantoprazole (Protonix Tab) 40 mg DAILY@06 PO Last administered on 09/19/16 05: 22; Admin Dose 40 MG; Start 09/14/16 at 06:00 Heparin Sodium (Porcine) (Heparin (5000 Units/0.5 ml)) 5,000 unit Q12 SC Last administered on 09/19/16 08:32; Admin Dose 5,000 UNIT; Start 09/13/16 at 21:00 Lorazepam (Ativan) 0.5 mg Q6H PRN IV ANXIETY; Start 09/13/16 at 10:30 Hydralazine HCl (Apresoline) 10 mg Q6H PRN IV ELEVATED BLOOD PRESSURE Last administered on 09/15/16 21:12; Admin Dose 10 MG; Start 09/13/16 at 10:30 Clonidine (Catapres) 0.1 mg Q6H PRN PO ELEVATED BLOOD PRESSURE Last administered on 09/13/16 20:09; Admin Dose 0.1 MG; Start 09/13/16 at 10:30 Nitroglycerin (Nitroglycerin (Sl Tab) 0.4 Mg) 1 tab Q5M PRN SL ANGINA; Start at 10:30 Nifedipine (Procardia Xl) 30 mg BID PO Last administered on 09/18/16 20:44; Admin Dose 30 MG; Start 09/16/16 at 21:00 Carvedilol 6.25 mg 6.25 mg BID PO Last administered on 09/18/16 20:45; Admin Dose 6.25 MG; Start 09/16/16 at 21:00 Levetiracetam (Keppra 500 Mg/ 100ml (Pmx)) 100 ml @ 400 mls/hr DAILY IVPB Last administered on 09/18/16 09:41; Admin Dose 400 MLS/HR; Start 09/18/16 at 10: 00 Assessment/Plan Chief Complaint/Hosp Course ASSESSMENT AND PLAN: 1. Advanced renal failure, likely end-stage renal disease. The patient's workup has been negative for any findings suggestive of acute glomerulonephritis or vasculitis. The patient's serological data has been negative compliments negative [place], ANCA, anti-double stranded DNA have been negative. The patient's renal ultrasound also shows markedly echogenicity consistent with chronic kidney disease. At this point, the patient is on dialysis, been receiving daily dialysis for solute clearance and volume removal. Will anticipate possible renal biopsy at the end of this week as patient's uremia is improving and blood pressure is better controlled. We will continue to monitor closely. 2. Hypertension. Blood pressure remains elevated, will adjust patient's blood pressure medications, Procardia 30 mg b.i.d. Continue ultrafiltration dialysis. 3. Anemia of chronic disease. Continue to monitor H and H levels. Will give Epogen as needed. 4. Mineral bone disorder. Continue to monitor calcium and phosphorus levels. Continue phos binders. 5. Metabolic acidosis, resolved. 6. Seizure likely secondary to uremia. Continue to monitor. 7. History of craniotomy as a child. Problems: JESÚS PAYNE MD Sep 19, 2016 09:37
[2016-09-19 10:27] LABS: ADD SCAN DIFF NO
[2016-09-19 10:43] LABS: BASOPHILS % 0.1 % (0.0-2.0); EOSINOPHILS # 0.1 10^3/ul (0.0-0.5); EOSINOPHILS % 0.5 % (0.0-7.0); HEMATOCRIT 28.4 % (42.0-52.0); HEMOGLOBIN 8.5 g/dl (14.0-18.0); LYMPHOCYTES # 0.9 10^3/ul (0.8-2.9); LYMPHOCYTES % 9.4 % (15.0-51.0); MEAN CORPUSCULAR HEMOGLOBIN 27.1 pg (29.0-33.0); MEAN CORPUSCULAR HGB CONC 29.9 g/dl (32.0-37.0); MEAN CORPUSCULAR VOLUME 90.4 fl (82.0-101.0); MEAN PLATELET VOLUME 11.3 fl (7.4-10.4); MONOCYTE # 0.8 10^3/ul (0.3-0.9); MONOCYTES % 8.7 % (0.0-11.0); NEUTROPHIL # 7.7 10^3/ul (1.6-7.5); NEUTROPHILS % 80.9 % (39.0-77.0); PLATELET COUNT 245 10^3/UL (140-415); RED BLOOD COUNT 3.14 10^6/ul (4.70-6.10); RED CELL DISTRIBUTION WIDTH 13.7 % (11.5-14.5); WHITE BLOOD COUNT 9.5 10^3/ul (4.8-10.8)
[2016-09-19 10:53] LABS: POTASSIUM 3.5 mmol/L (3.5-5.1)
[2016-09-19 10:55] LABS: CREATININE 9.03 mg/dl (0.61-1.24)
[2016-09-19 10:56] LABS: CALCIUM 9.4 mg/dl (8.4-10.2)
--- NOTE | 2016-09-19 10:57 | PN ---
Date/Time of Note Date/Time of Note DATE: 09/19/16 TIME: 10:56 Assessment/Plan VTE Prophylaxis VTE Prophylaxis Intervention: ambulation Lines/Catheters IV [facility] perma catheter Assessment/Plan Chief Complaint/Hosp Course Assessment/Plan 1. Seizure disorder, likely uremia related, on keppra, follow up with neurology and seizure activity 2. Acute on chronic renal failure, follow up with nephrology, HD started on 2016, s/p biopsy on 09/18/2016 awaiting biopsy results 3. Normocytic anemia, CKD related, on epogen 4. Hypertension, renal failure repated, on norvasc 5. h/o left craniotomy at 4 years old with right hand weakness 6. DVT prophylaxis: heparin Problems: Subjective 24 Hr Interval Summary Free Text/Dictation Patient awake alert oriented comfortable at rest this morning having hemodialysis Exam/Review of Systems Vital Signs Vitals Vital Signs Date Time Temp Pulse Resp B/P Pulse Ox O2 Delivery O2 Flow Rate FiO2 09/19/16 09:15 85 09/19/16 08:45 16 09/19/16 07:15 98.0 127/71 97 09/18/16 15:50 Room Air 09/18/16 15:00 2 Intake and Output 09/18/16 09/18/16 09/19/16 15:00 23:00 07:00 Intake Total 100 ml 480 ml 390 ml Balance 100 ml 480 ml 390 ml Exam GENERAL: Well-nourished well-developed gentleman sitting up in chair comfortable at rest VITAL SIGNS: per chart NECK: Supple. No JVD or lymphadenopathy. CARDIAC EXAM: S1, S2. No added sounds or murmurs. CHEST: clear bilaterally, No added sounds, rales or wheezes ABDOMEN: Soft, nontender. No guarding or rebound. EXTREMITIES: No cyanosis, clubbing or edema. NEUROLOGIC: Generalized weakness. No focal deficits. Results Result Diagram: 09/19/16 1020 09/19/16 1020 Results 24 hrs Laboratory Tests Test 09/19/16 10:20 White Blood Count 9.5 Red Blood Count 3.14 L Hemoglobin 8.5 L Hematocrit 28.4 L Mean Corpuscular Volume 90.4 Mean Corpuscular Hemoglobin 27.1 L Mean Corpuscular Hemoglobin Concent 29.9 L Red Cell Distribution Width 13.7 Platelet Count 245 # Mean Platelet Volume 11.3 H Neutrophils % 80.9 H Lymphocytes % 9.4 L Monocytes % 8.7 Eosinophils % 0.5 Basophils % 0.1 Nucleated Red Blood Cells % 0.0 Neutrophils # 7.7 H Lymphocytes # 0.9 Monocytes # 0.8 Eosinophils # 0.1 Basophils # 0.0 Nucleated Red Blood Cells # 0.0 Sodium Level 145 H Potassium Level 3.5 Chloride Level 100 Carbon Dioxide Level Pending Anion Gap Pending Blood Urea Nitrogen Pending Creatinine 9.03 #H Glucose Level Pending Calcium Level Pending Medications Medications Current Medications Ondansetron HCl (Zofran Inj) 4 mg Q6H PRN IV NAUSEA AND/OR VOMITING; Start 09/13 at 10:30 Acetaminophen (Tylenol Tab) 650 mg Q6H PRN PO PAIN LEVEL 1-3 OR FEVER; Start at 10:30 Acetaminophen/ Hydrocodone Bitart ([place] (5/325)) 1 tab Q6H PRN PO MODERATE PAIN LEVEL 4-6 Last administered on 09/16/16 22:48; Admin Dose 1 TAB; Start 09/13 at 10:30 Morphine Sulfate (morphine) 2 mg Q4H PRN IV SEVERE PAIN LEVEL 7-10 Last administered on 09/16/16 06:38; Admin Dose 2 MG; Start 09/13/16 at 10:30 Docusate Sodium (Colace) 100 mg Q12H PRN PO CONSTIPATION; Start 09/13/16 at 10: 30 Magnesium Hydroxide (Milk Of Mag) 30 ml DAILY PRN PO CONSTIPATION; Start at 10:30 Sodium Biphosphate/ Sodium Phosphate (Fleet Enema) 133 ml DAILY PRN [place] CONSTIPATION; Start 09/13/16 at 10:30 Pantoprazole (Protonix Tab) 40 mg DAILY@06 PO Last administered on 09/19/16 05: 22; Admin Dose 40 MG; Start 09/14/16 at 06:00 Heparin Sodium (Porcine) (Heparin (5000 Units/0.5 ml)) 5,000 unit Q12 SC Last administered on 09/19/16 08:32; Admin Dose 5,000 UNIT; Start 09/13/16 at 21:00 Lorazepam (Ativan) 0.5 mg Q6H PRN IV ANXIETY; Start 09/13/16 at 10:30 Hydralazine HCl (Apresoline) 10 mg Q6H PRN IV ELEVATED BLOOD PRESSURE Last administered on 09/15/16 21:12; Admin Dose 10 MG; Start 09/13/16 at 10:30 Clonidine (Catapres) 0.1 mg Q6H PRN PO ELEVATED BLOOD PRESSURE Last administered on 09/13/16 20:09; Admin Dose 0.1 MG; Start 09/13/16 at 10:30 Nitroglycerin (Nitroglycerin (Sl Tab) 0.4 Mg) 1 tab Q5M PRN SL ANGINA; Start at 10:30 Nifedipine (Procardia Xl) 30 mg BID PO Last administered on 09/18/16 20:44; Admin Dose 30 MG; Start 09/16/16 at 21:00 Carvedilol 6.25 mg 6.25 mg BID PO Last administered on 09/18/16 20:45; Admin Dose 6.25 MG; Start 09/16/16 at 21:00 Levetiracetam (Keppra 500 Mg/ 100ml (Pmx)) 100 ml @ 400 mls/hr DAILY IVPB Last administered on 09/18/16 09:41; Admin Dose 400 MLS/HR; Start 09/18/16 at 10: 00 WO[facility] HENDRICKS MD[facility] Sep 19, 2016 10:57
[2016-09-19] MEDS: EPOETIN 10000 UNITS/1 ML INJ (ESRD) SC SCH (15:19)
[2016-09-19 19:10] LABS: % CRYOCRIT NONE DETECTED (NONE DETECTED)
--- NOTE | 2016-09-19 21:17 | PN ---
Date/Time of Note Date/Time of Note DATE: 09/19/16 TIME: 21:16 Assessment/Plan Lines/Catheters IV Catheter Type (from Nrsg): perma cath Assessment/Plan Chief Complaint/Hosp Course ESRD SP HD cath placement will continue dialysis May need AVF placement will discuss with Dr Larry Problems: Subjective 24 Hr Interval Summary Constitutional: improved Pain Control: mild Exam/Review of Systems Vital Signs Vitals Vital Signs Date Time Temp Pulse Resp B/P Pulse Ox O2 Delivery O2 Flow Rate FiO2 09/19/16 11:28 109 16 113/58 96 Room Air 09/19/16 07:15 98.0 09/18/16 15:00 2 Intake and Output 09/18/16 09/18/16 09/19/16 15:00 23:00 07:00 Intake Total 100 ml 480 ml 390 ml Balance 100 ml 480 ml 390 ml Exam ENMT: mucosa pink and moist, nl external ears & nose, nl lips & teeth, nl nasal mucosa & septum Neck: non-tender, supple Respiratory: clear to auscultation, normal air movement Cardiovascular: nl pulses, regular rate and rhythm Results Result Diagram: 09/19/16 1020 09/19/16 1020 JILLIAN RODRIGUEZ MD Sep 19, 2016 21:17
[2016-09-20] MEDS: PANTOPRAZOLE (EC) 40 MG TAB PO SCH (05:05)
[2016-09-20 08:00] VITALS: BP 143/89; RESP 16
[2016-09-20] MEDS: NIFEdipine (XL) 30 MG TAB PO SCH ×2 (08:44→21:17)
[2016-09-20] MEDS: SEVELAMER 800 MG TAB PO SCH ×3 (08:44→17:23)
[2016-09-20] MEDS: HEPARIN 5,000 UNIT/0.5 ML VIAL SC SCH ×2 (08:46→21:21)
[2016-09-20] MEDS: LEVETIRACETAM 500 MG (PMX) 100 ML IVPB SCH (08:49)
[2016-09-20 09:38] LABS: ADD SCAN DIFF NO
[2016-09-20 09:42] LABS: BASOPHILS % 0.2 % (0.0-2.0); EOSINOPHILS # 0.1 10^3/ul (0.0-0.5); EOSINOPHILS % 0.8 % (0.0-7.0); HEMATOCRIT 26.1 % (42.0-52.0); HEMOGLOBIN 8.1 g/dl (14.0-18.0); LYMPHOCYTES # 1.1 10^3/ul (0.8-2.9); LYMPHOCYTES % 11.8 % (15.0-51.0); MEAN CORPUSCULAR HEMOGLOBIN 28.5 pg (29.0-33.0); MEAN CORPUSCULAR VOLUME 91.9 fl (82.0-101.0); MEAN PLATELET VOLUME 12.7 fl (7.4-10.4); MONOCYTE # 0.9 10^3/ul (0.3-0.9); MONOCYTES % 10.1 % (0.0-11.0); NEUTROPHIL # 6.9 10^3/ul (1.6-7.5); NEUTROPHILS % 76.7 % (39.0-77.0); PLATELET COUNT 177 10^3/UL (140-415); RED BLOOD COUNT 2.84 10^6/ul (4.70-6.10); RED CELL DISTRIBUTION WIDTH 13.2 % (11.5-14.5)
[2016-09-20 10:00] LABS: CALCIUM 8.5 mg/dl (8.4-10.2); CREATININE 11.58 mg/dl (0.61-1.24); POTASSIUM 4.6 mmol/L (3.5-5.1)
--- NOTE | 2016-09-20 10:34 | CONS ---
Date/Time of Note Date/Time of Note DATE: 09/20/16 TIME: 10:31 Consult Date/Type/Reason Admit Date/Time Sep 13, 2016 at 09:09 Type of Consultation: neph Subjective The patient is clinically stable. The patient had kidney biopsy wednesday. He tolerated hd yesterday. We will otherwise continue to monitor for any signs of recovery. poc reviewed with dr. diamond. The patient's serological workup to date has been negative. OBJECTIVE: HEENT: Head is normocephalic. NECK: Supple. HEART: Regular rate. LUNGS: Show diminished breath sounds at base. ABDOMEN: Soft, nontender to palpation. No rebound or guarding. EXTREMITIES: Negative for clubbing, cyanosis. No edema. DERMATOLOGIC: No rashes. MUSCULOSKELETAL: No joint effusions. NEUROLOGIC: No focal deficits. PHYSICAL EXAMINATION: HEENT: Head is normocephalic, atraumatic. Pupils equal, round, reactive to light. Oropharynx shows moist mucous membranes. NECK: Supple. HEART: Regular rate, rhythm. LUNGS: Clear to auscultation. ABDOMEN: Soft, nontender, nondistended. Normoactive bowel sounds. EXTREMITIES: No clubbing Objective Vital Signs Date Time Temp Pulse Resp B/P Pulse Ox O2 Delivery O2 Flow Rate FiO2 09/20/16 08:00 98.8 106 16 143/89 96 09/19/16 11:28 Room Air 09/18/16 15:00 2 Intake and Output 09/19/16 09/19/16 09/20/16 15:00 23:00 07:00 Intake Total 300 ml 1020 ml 400 ml Output Total 2800 ml Balance -2500 ml 1020 ml 400 ml Results/Medications Result Diagram: 09/20/1620 09/20/16 0920 Results 24 hrs Laboratory Tests Test 09/20/16 09:08 09/20/16 09:20 Lab Scanned Report REFERENCE LAB White Blood Count 9.0 Red Blood Count 2.84 L Hemoglobin 8.1 L Hematocrit 26.1 L Mean Corpuscular Volume 91.9 Mean Corpuscular Hemoglobin 28.5 L Mean Corpuscular Hemoglobin Concent 31.0 L Red Cell Distribution Width 13.2 Platelet Count 177 # Mean Platelet Volume 12.7 H Neutrophils % 76.7 Lymphocytes % 11.8 L Monocytes % 10.1 Eosinophils % 0.8 Basophils % 0.2 Nucleated Red Blood Cells % 0.0 Neutrophils # 6.9 Lymphocytes # 1.1 Monocytes # 0.9 Eosinophils # 0.1 Basophils # 0.0 Nucleated Red Blood Cells # 0.0 Sodium Level 138 Potassium Level 4.6 Chloride Level 102 Carbon Dioxide Level 23 Anion Gap 18 H Blood Urea Nitrogen 88 H Creatinine 11.58 #H Glucose Level 115 # Calcium Level 8.5 Medications Current Medications Ondansetron HCl (Zofran Inj) 4 mg Q6H PRN IV NAUSEA AND/OR VOMITING; Start 09/13 at 10:30 Acetaminophen (Tylenol Tab) 650 mg Q6H PRN PO PAIN LEVEL 1-3 OR FEVER; Start at 10:30 Acetaminophen/ Hydrocodone Bitart ([place] (5/325)) 1 tab Q6H PRN PO MODERATE PAIN LEVEL 4-6 Last administered on 09/16/16 22:48; Admin Dose 1 TAB; Start 09/13 at 10:30 Morphine Sulfate (morphine) 2 mg Q4H PRN IV SEVERE PAIN LEVEL 7-10 Last administered on 09/16/16 06:38; Admin Dose 2 MG; Start 09/13/16 at 10:30 Docusate Sodium (Colace) 100 mg Q12H PRN PO CONSTIPATION; Start 09/13/16 at 10: 30 Magnesium Hydroxide (Milk Of Mag) 30 ml DAILY PRN PO CONSTIPATION; Start at 10:30 Sodium Biphosphate/ Sodium Phosphate (Fleet Enema) 133 ml DAILY PRN [place] CONSTIPATION; Start 09/13/16 at 10:30 Pantoprazole (Protonix Tab) 40 mg DAILY@06 PO Last administered on 09/20/16 05: 05; Admin Dose 40 MG; Start 09/14/16 at 06:00 Heparin Sodium (Porcine) (Heparin (5000 Units/0.5 ml)) 5,000 unit Q12 SC Last administered on 09/20/16 08:46; Admin Dose 5,000 UNIT; Start 09/13/16 at 21:00 Lorazepam (Ativan) 0.5 mg Q6H PRN IV ANXIETY; Start 09/13/16 at 10:30 Hydralazine HCl (Apresoline) 10 mg Q6H PRN IV ELEVATED BLOOD PRESSURE Last administered on 09/15/16 21:12; Admin Dose 10 MG; Start 09/13/16 at 10:30 Clonidine (Catapres) 0.1 mg Q6H PRN PO ELEVATED BLOOD PRESSURE Last administered on 09/13/16 20:09; Admin Dose 0.1 MG; Start 09/13/16 at 10:30 Nitroglycerin (Nitroglycerin (Sl Tab) 0.4 Mg) 1 tab Q5M PRN SL ANGINA; Start at 10:30 Nifedipine (Procardia Xl) 30 mg BID PO Last administered on 09/20/16 08:44; Admin Dose 30 MG; Start 09/16/16 at 21:00 Carvedilol 6.25 mg 6.25 mg BID PO Last administered on 09/20/16 08:44; Admin Dose 6.25 MG; Start 09/16/16 at 21:00 Levetiracetam (Keppra 500 Mg/ 100ml (Pmx)) 100 ml @ 400 mls/hr DAILY IVPB Last administered on 09/20/16 08:49; Admin Dose 400 MLS/HR; Start 09/18/16 at 10: 00 Assessment/Plan Chief Complaint/Hosp Course ASSESSMENT AND PLAN: 1. Advanced renal failure, likely end-stage renal disease. The patient's workup has been negative for any findings suggestive of acute glomerulonephritis or vasculitis. The patient's serological data has been negative compliments negative [place], ANCA, anti-double stranded DNA have been negative. The patient's renal ultrasound also shows markedly echogenicity consistent with chronic kidney disease. At this point, the patient is on dialysis, been receiving daily dialysis for solute clearance and volume removal. sp kidney biopsy for eval of reversible causes. if irriversible, will need fistula. We will continue to monitor closely. should have outpatient hd planned prior to discharge. will communicate results of biopsy once available. will plan hd for am. 2. Hypertension. Blood pressure remains mildly elevated, will adjust patient' s blood pressure medications, Procardia 30 mg b.i.d. Continue ultrafiltration dialysis. 3. Anemia of chronic disease. Continue to monitor H and H levels. Will give Epogen as needed. 4. Mineral bone disorder. Continue to monitor calcium and phosphorus levels. Continue phos binders. 5. Metabolic acidosis, resolved. 6. Seizure likely secondary to uremia. Continue to monitor. 7. History of craniotomy as a child. Problems: FARAHMANDIAN,JESÚS MD Sep 20, 2016 10:34
--- NOTE | 2016-09-20 14:17 | PN ---
Date/Time of Note Date/Time of Note DATE: 09/20/16 TIME: 14:16 Assessment/Plan Lines/Catheters IV Catheter Type (from Nrsg): Saline Lock Villarreal in Place (from Nrsg): No Assessment/Plan Chief Complaint/Hosp Course ESRD SP HD cath placement will continue dialysis May need AVF placement will discuss with Dr Larry Problems: Subjective 24 Hr Interval Summary Constitutional: improved Pain Control: mild Exam/Review of Systems Vital Signs Vitals Vital Signs Date Time Temp Pulse Resp B/P Pulse Ox O2 Delivery O2 Flow Rate FiO2 09/20/16 08:00 98.8 106 16 143/89 96 09/19/16 11:28 Room Air 09/18/16 15:00 2 Intake and Output 09/19/16 09/19/16 09/20/16 15:00 23:00 07:00 Intake Total 300 ml 1020 ml 400 ml Output Total 2800 ml Balance -2500 ml 1020 ml 400 ml Exam Neck: non-tender, supple Respiratory: clear to auscultation, normal air movement Cardiovascular: nl pulses, regular rate and rhythm Gastrointestinal: nl liver, spleen, non-tender, soft Results Result Diagram: 09/20/1691909/20/16919 JILLIAN RODRIGUEZ MD Sep 20, 2016 14:17
--- NOTE | 2016-09-20 16:10 | PN ---
DATE: 09/20/2016 MEDICINE FOLLOW UP SUBJECTIVE: Chart reviewed. No significant events noted. Nephrology followup noted. PHYSICAL EXAMINATION: VITAL SIGNS: Blood pressure 143/89, pulse 106, respirations 16, temperature 98.8, currently saturat ing 96% on room air. HEENT: Pupils are equal and reactive to light. NECK: Supple, no JVD noted, no cervical adenopathy, no carotid bruits heard. LUNGS: Fair breath sounds bilaterally. CARDIOVASCULAR: S1, S2 normal. ABDOMEN: Soft, nontender. No organomegaly or masses noted. EXTREMITIES: No clubbing or cyanosis noted. NEUROLOGICAL: Awake. LABORATORY DATA: WBC 9, hemoglobin 8.1, hematocrit 26.1, platelets 177. Sodium 138, potassium 4.6, chloride 102, CO2 23, BUN 88, creatinine 11.58, glucose 115. IMPRESSION: 1. Seizure disorder, likely uremia-related. 2. Acute on chronic renal failure, now on hemodialysis. 3. Status post renal biopsy, awaiting pathology report. 4. Anemia. 5. Hypertension. 6. History of left craniotomy at the age of 40 years. RECOMMENDATIONS: 1. Continue dialysis as per nephrology. 2. Check renal biopsy results. Dictated By: CLAUDE HATHAWAY MD, MA/TRUDI Conf#: [id number] DID#: [id number] CC: MISTI SIMMONS;*EndCC*
[2016-09-20 17:26] VITALS: BP 141/90; PULSE 111
[2016-09-20 21:00] VITALS: BP 104/90; RESP 18
[2016-09-21] VITALS (10 sets, daily range): BP systolic 110–133; BP diastolic 74–105; PULSE 96–107; RESP 18
[2016-09-21] MEDS: PANTOPRAZOLE (EC) 40 MG TAB PO SCH (05:58)
[2016-09-21] MEDS: LEVETIRACETAM 500 MG (PMX) 100 ML IVPB SCH (08:30)
[2016-09-21] MEDS: SEVELAMER 800 MG TAB PO SCH ×3 (08:30→17:35)
[2016-09-21] MEDS: HEPARIN 5,000 UNIT/0.5 ML VIAL SC SCH ×2 (08:31→20:33)
[2016-09-21] MEDS: NIFEdipine (XL) 30 MG TAB PO SCH ×2 (09:00→20:30)
--- NOTE | 2016-09-21 10:49 | PN ---
Date/Time of Note Date/Time of Note DATE: 09/21/16 TIME: 10:46 Assessment/Plan VTE Prophylaxis VTE Prophylaxis Intervention: heparin Lines/Catheters IV Catheter Type (from Nrs): Saline Lock Urinary Cath still in place: No Assessment/Plan Chief Complaint/Hosp Course S-events noted O-VSS PE No pallor JVD Reg CTAB BS+ NT ND; no r/r/g No edema A/P 1. New onset seizure disorder. eeg -ve. Uremia assoc. Stable cont Keppra for now. 2. Acute renal failure. sp Bx-results pending. Avoid PICC. Outpt AV mapping. 3. Htn urgency 4. Anemia likely chr disease 5. Ho lt craniectomy Problems: Exam/Review of Systems Vital Signs Vitals Vital Signs Date Time Temp Pulse Resp B/P Pulse Ox O2 Delivery O2 Flow Rate FiO2 09/21/16 07:45 97.9 107 18 129/81 97 09/19/16 11:28 Room Air 09/18/16 15:00 2 Intake and Output 09/20/16 09/20/16 09/21/16 15:00 23:00 07:00 Intake Total 100 ml 810 ml 350 ml Balance 100 ml 810 ml 350 ml Results Result Diagram: 09/20/16 0920 09/20/16 0920 Medications Medications Current Medications Ondansetron HCl (Zofran Inj) 4 mg Q6H PRN IV NAUSEA AND/OR VOMITING; Start 09/13 at 10:30 Acetaminophen (Tylenol Tab) 650 mg Q6H PRN PO PAIN LEVEL 1-3 OR FEVER; Start at 10:30 Acetaminophen/ Hydrocodone Bitart ([place] (5/325)) 1 tab Q6H PRN PO MODERATE PAIN LEVEL 4-6 Last administered on 09/16/16 22:48; Admin Dose 1 TAB; Start 09/13 at 10:30 Morphine Sulfate (morphine) 2 mg Q4H PRN IV SEVERE PAIN LEVEL 7-10 Last administered on 09/16/16 06:38; Admin Dose 2 MG; Start 09/13/16 at 10:30 Docusate Sodium (Colace) 100 mg Q12H PRN PO CONSTIPATION; Start 09/13/16 at 10: 30 Magnesium Hydroxide (Milk Of Mag) 30 ml DAILY PRN PO CONSTIPATION; Start at 10:30 Sodium Biphosphate/ Sodium Phosphate (Fleet Enema) 133 ml DAILY PRN [place] CONSTIPATION; Start 09/13/16 at 10:30 Pantoprazole (Protonix Tab) 40 mg DAILY@06 PO Last administered on 09/21/16 05 :58; Admin Dose 40 MG; Start 09/14/16 at 06:00 Heparin Sodium (Porcine) (Heparin (5000 Units/0.5 ml)) 5,000 unit Q12 SC Last administered on 09/21/16 08:31; Admin Dose 5,000 UNIT; Start 09/13/16 at 21:00 Lorazepam (Ativan) 0.5 mg Q6H PRN IV ANXIETY; Start 09/13/16 at 10:30 Hydralazine HCl (Apresoline) 10 mg Q6H PRN IV ELEVATED BLOOD PRESSURE Last administered on 09/15/16 21:12; Admin Dose 10 MG; Start 09/13/16 at 10:30 Clonidine (Catapres) 0.1 mg Q6H PRN PO ELEVATED BLOOD PRESSURE Last administered on 09/13/16 20:09; Admin Dose 0.1 MG; Start 09/13/16 at 10:30 Nitroglycerin (Nitroglycerin (Sl Tab) 0.4 Mg) 1 tab Q5M PRN SL ANGINA; Start at 10:30 Nifedipine (Procardia Xl) 30 mg BID PO Last administered on 09/20/16 21:17; Admin Dose 30 MG; Start 09/16/16 at 21:00 Carvedilol 6.25 mg 6.25 mg BID PO Last administered on 09/20/16 21:16; Admin Dose 6.25 MG; Start 09/16/16 at 21:00 Levetiracetam (Keppra 500 Mg/ 100ml (Pmx)) 100 ml @ 400 mls/hr DAILY IVPB Last administered on 09/21/16 08:30; Admin Dose 400 MLS/HR; Start 09/18/16 at 10 :00 LISSETT FAROOQ MD Sep 21, 2016 10:49
[2016-09-21] MEDS ORDERED: LEVETIRACETAM 500 MG TAB PO SCH (11:00)
--- NOTE | 2016-09-21 11:30 | PN ---
DATE: 09/21/2016 SUBJECTIVE: The patient is stable, no acute events overnight. No fevers, chills, nausea, vomiting. OBJECTIVE: VITAL SIGNS: Blood pressure 129/81, respiration 18, pulse 107, temperature 97.9. HEENT: Head is normocephalic. NECK: Supple. HEART: Regular rate. LUNGS: Show diminished breath sounds at the base. ABDOMEN: Soft, nontender to palpation. No rebound or guarding. EXTREMITIES: Negative for clubbing, cyanosis. No edema. DERMATOLOGIC: No rashes. MUSCULOSKELETAL: No joint effusions. NEUROLOGIC: No change in exam. MEDICATIONS: The patient's medication has been reviewed. LABORATORY DATA: Has been reviewed. No new labs. ASSESSMENT AND PLAN: 1. Advanced renal failure, likely end-stage renal disease. The patient is status post renal biopsy . Results are pending. The patient is currently receiving dialysis 3 times weekly. Will have hemo dialysis today. We are waiting for outpatient hemodialysis to be arranged. 2. Hypertension. Continue current blood pressure regimen. Continue ultrafiltration dialysis. 3. Anemia of chronic disease. Continue to monitor hemoglobin and hematocrit levels. Continue Epoge n. 4. Mineral bone disorder. Continue to monitor calcium and phosphorus levels. Continue phosphate b inders. 5. Seizures, likely secondary to uremia, improved. Continue to monitor. 6. History of craniotomy, Dictated By: DELVIS LIANG/TRUDI Conf#: [id number] DID#: [id number]
--- NOTE | 2016-09-21 13:28 | PN ---
Date/Time of Note Date/Time of Note DATE: 09/21/16 TIME: 13:28 Assessment/Plan Lines/Catheters IV Catheter Type (from Nrsg): Saline Lock Villarreal in Place (from Nrsg): No Assessment/Plan Chief Complaint/Hosp Course ESRD SP HD cath placement will continue dialysis May need AVF placement will discuss with Dr Larry Problems: Subjective 24 Hr Interval Summary Constitutional: improved Pain Control: mild Exam/Review of Systems Vital Signs Vitals Vital Signs Date Time Temp Pulse Resp B/P Pulse Ox O2 Delivery O2 Flow Rate FiO2 09/21/16 07:45 97.9 107 18 129/81 97 09/19/16 11:28 Room Air 09/18/16 15:00 2 Intake and Output 09/20/16 09/20/16 09/21/16 15:00 23:00 07:00 Intake Total 100 ml 810 ml 350 ml Balance 100 ml 810 ml 350 ml Exam ENMT: mucosa pink and moist, nl external ears & nose, nl lips & teeth, nl nasal mucosa & septum Neck: non-tender, supple Respiratory: clear to auscultation, normal air movement Cardiovascular: nl pulses, regular rate and rhythm Results Result Diagram: 09/20/1691909/20/16919 JILLIAN RODRIGUEZ MD Sep 21, 2016 13:28
[2016-09-21] MEDS ORDERED: HEPARIN 1000 UNITS/ML 10 ML INJ CATHETER ONE (14:00)
[2016-09-21] MEDS: EPOETIN 10000 UNITS/1 ML INJ (ESRD) SC SCH (17:11)
[2016-09-22 05:55] LABS: ADD SCAN DIFF NO
[2016-09-22 05:58] LABS: BASOPHILS % 0.4 % (0.0-2.0); EOSINOPHILS # 0.1 10^3/ul (0.0-0.5); EOSINOPHILS % 1.1 % (0.0-7.0); HEMOGLOBIN 7.9 g/dl (14.0-18.0); LYMPHOCYTES # 1.5 10^3/ul (0.8-2.9); LYMPHOCYTES % 18.3 % (15.0-51.0); MEAN CORPUSCULAR HEMOGLOBIN 27.4 pg (29.0-33.0); MEAN CORPUSCULAR HGB CONC 30.4 g/dl (32.0-37.0); MEAN CORPUSCULAR VOLUME 90.3 fl (82.0-101.0); MEAN PLATELET VOLUME 10.8 fl (7.4-10.4); MONOCYTE # 1.1 10^3/ul (0.3-0.9); MONOCYTES % 13.3 % (0.0-11.0); NEUTROPHIL # 5.4 10^3/ul (1.6-7.5); NEUTROPHILS % 66.2 % (39.0-77.0); NUCLEATED RED BLOOD CELLS% 0.2 /100WBC (0.0-0.0); PLATELET COUNT 293 10^3/UL (140-415); RED BLOOD COUNT 2.88 10^6/ul (4.70-6.10); RED CELL DISTRIBUTION WIDTH 13.3 % (11.5-14.5); WHITE BLOOD COUNT 8.2 10^3/ul (4.8-10.8)
[2016-09-22 06:13] LABS: CALCIUM 8.9 mg/dl (8.4-10.2); CREATININE 10.77 mg/dl (0.61-1.24); POTASSIUM 4.6 mmol/L (3.5-5.1)
[2016-09-22] MEDS ORDERED: FAMOTIDINE 20 MG TAB PO SCH (09:00)
[2016-09-22] MEDS ORDERED: LEVETIRACETAM 500 MG TAB PO SCH (09:00)
[2016-09-22] MEDS: SEVELAMER 800 MG TAB PO SCH ×2 (09:07→12:22)
[2016-09-22] MEDS: HEPARIN 5,000 UNIT/0.5 ML VIAL SC SCH (09:08)
[2016-09-22] MEDS: NIFEdipine (XL) 30 MG TAB PO SCH (09:13)
--- NOTE | 2016-09-22 11:21 | PN ---
DATE: 09/22/2016 SUBJECTIVE: The patient is stable, had hemodialysis yesterday, tolerated well. No other events not ed. OBJECTIVE: VITAL SIGNS: Blood pressure 131/74, respirations 18, pulse 117, temperature 98.9. HEENT: Head is normocephalic. NECK: Supple. HEART: Regular rate. LUNGS: Show diminished breath sounds at base. ABDOMEN: Soft, nontender to palpation without rebound or guarding. EXTREMITIES: Negative for clubbing, cyanosis, edema. DERMATOLOGIC: No rashes. MUSCULOSKELETAL: No joint effusions. NEUROLOGIC: No change in exam. MEDICATIONS: Have been reviewed. LABORATORY DATA: Shows sodium 138, potassium 4.6, chloride 98, BUN 90, creatinine 10.77. White cou nt 8.2, hemoglobin 7.9, hematocrit 26.0, platelet count 293. ASSESSMENT AND PLAN: 1. Advanced renal failure. Etiology is likely end-stage renal disease. 2. The patient is status post renal biopsy, results pending. The patient is currently on dialysis 3 times weekly waiting for biopsy results. The patient's outpatient hemodialysis has been arranged, anticipate dialysis tomorrow if patient remains in hospital. 3. Hypertension. Current blood pressure regimen. Continue ultrafiltration dialysis. 4. Anemia of chronic disease. Monitor hemoglobin and hematocrit levels. Continue Epogen. 5. Mineral bone disorder. Continue to monitor calcium and phosphorus levels. Continue phos binder s. 6. Seizure likely secondary to uremia, improved. Continue to monitor. 7. History of craniotomy. Dictated By: DELVIS LIANG/TRUDI Conf#: [id number] DID#: [id number]
--- NOTE | 2016-09-22 11:28 | PDOCDIS ---
Discharge Instructions DIAGNOSIS Discharge Diagnosis: Renal Failure CONDITION Patient Condition: Good HOME CARE INSTRUCTIONS: Special Diet: renal diet ACTIVITY: Activity Restrictions: Slowly Increase Activity Do not Drive FOLLOW UP/APPOINTMENTS Appointments Appt pcp [address] Memo Larry -1wk Dialysis as instructed- LISSETT FAROOQ MD Sep 22, 2016 11:28
[2016-09-22] MEDS ORDERED: SEVE800T10 PO (11:30)
[2016-09-22] MEDS ORDERED: NIFEdipine (XL) PO (11:30)
[2016-09-22] MEDS ORDERED: LEVE-5 PO (11:30)
[2016-09-22] MEDS ORDERED: CARV6.2579 PO (11:30)
--- NOTE | 2016-09-22 13:30 | PN ---
Date/Time of Note Date/Time of Note DATE: 09/22/16 TIME: 13:30 Assessment/Plan Lines/Catheters IV Catheter Type (from Nrsg): Saline Lock Villarreal in Place (from Nrsg): No Assessment/Plan Chief Complaint/Hosp Course ESRD SP HD cath placement will continue dialysis May need AVF placement will discuss with Dr Larry Problems: Subjective 24 Hr Interval Summary Constitutional: improved Pain Control: mild Exam/Review of Systems Vital Signs Vitals Vital Signs Date Time Temp Pulse Resp B/P Pulse Ox O2 Delivery O2 Flow Rate FiO2 09/21/16 20:36 98.9 117 18 131/74 98 09/19/16 11:28 Room Air 09/18/16 15:00 2 Intake and Output 09/21/16 09/21/16 09/22/16 15:00 23:00 07:00 Intake Total 300 ml 900 ml 840 ml Output Total 2800 ml 300 ml Balance -2500 ml 600 ml 840 ml Exam Neck: non-tender, supple Respiratory: clear to auscultation, normal air movement Cardiovascular: nl pulses, regular rate and rhythm Gastrointestinal: nl liver, spleen, non-tender, soft Results Result Diagram: 09/22/16 0510 09/22/16 0510 JILLIAN RODRIGUEZ MD Sep 22, 2016 13:30
--- NOTE | 2016-09-22 13:44 | DS ---
DATE OF ADMISSION: 09/13/2016 DATE OF DISCHARGE: 09/22/2016 PRIMARY CARE PHYSICIAN: Unknown. CONSULTANTS: Dr. Stiles, Dr. Hammer and Dr. Barron DIAGNOSES ON ADMISSION: 1. New onset seizure disorder. 2. Renal failure. DIAGNOSES ON DISCHARGE: 1. Acute renal failure. 2. New onset seizure disorder. 3. Hypertensive urgency. 4. Anemia. 5. History of left craniectomy. 6. Uremia. HOSPITAL COURSE: This is a 31-year-old gentleman admitted with symptoms of seizure. On evaluation, found to have renal failure, uremia. Seizure appears to be uremic associated. The patient was see n by neurology. EEG essentially unremarkable. Will continue Keppra for now. No driving. However, once uremia is corrected, I anticipate less chance of seizures and at some point he can be tapered off of Keppra soon. Her renal failure appears to be the new problem. Renal biopsy done. Pathology pending. Patient vale s started dialysis. He has a left IJ and is stable and fit for discharge. He will need AV mapping and outpatient AV fistula. We will wait for pathology to come back first. DISCHARGE PLAN: Home. Follow up with primary in 1 week, Dr. Stiles 1 week, Dr. Hammer maybe 2 to 3 weeks. Neurology as needed. DIET: Low salt. ACTIVITY: No driving. DURABLE MEDICAL EQUIPMENT: Temporary dialysis catheter. BARRIERS TO DISCHARGE: None. PENDING TESTS: None. FUNCTIONAL STATUS: The patient is awake, alert agrees to the plan of care. CONDITION: Good. ALLERGIES: NO KNOWN DRUG ALLERGIES. REASON FOR ADMISSION: Renal failure. MEDICATIONS: 1. Keppra 500 daily. 2. Coreg 6.25 twice daily. 3. Renagel 800 mg with meals. 4. Nifedipine XL 30 b.i.d. IMAGING STUDIES: 1. Left kidney biopsy under CT, renal ultrasound echogenic, medical renal disease. No hydronephros is. Two cysts seen. 2. CAT scan of brain: No acute process. There is a left frontal craniotomy status with focal left frontal encephalomalacia with small cortical calcification possibly from prior [employer] placement, mild d iffuse volume loss. Diffuse white matter densities. The patient had surgery as a child. 3. Chest x-ray: No acute process. LABORATORIES: Urine unremarkable. Hepatitis panel negative, [place], ANCA sent and negative, etc., al eliezer with complement. Tox screen negative. INR 1. White cell count of 8, hemoglobin and hematocrit of 7.9 and 26, MCV 90, platelets of 293. Sodium 138, potassium 4.6, chloride 96, bicarbonate 26, B UN of 80, creatinine 10.7, glucose of 95. A1c of 5.2, phosphorus of 8, magnesium of 1, AST and ALT of 11 and 15, alkaline phosphatase 75, bilirubin 0.3, protein of 7, albumin of 4. Vitamin D level o f 8, iron of 43, binding capacity of 223, percent saturation 19, ferritin of 320. PTH intact is a s end out. Triglycerides 63, total of 89, LDL of 56, HDL of 20. Dictated By: LISSETT FAROOQ MD AC/NTS Conf#: [id number] DID#: [id number] CC: DELVIS STILES DO; JILLIAN HAMMER MD; JOSÉ MIGUEL BARRON MD;*EndCC*
== END 2016-09-22 15:05 | disposition home or self-care (01) | DRG 100 ==
LOC: E/R 06:58 → PP2 09:09
PROVIDERS: ADMIT Hospitalist; ATTEND Hospitalist
PROC: 06HM33Z Insertion of Infusion Device into Right Femoral Vein, Percutaneous Approach (ICD-10-PCS; 2016-09-13)
PROC: 4A10X4Z Monitoring of Central Nervous Electrical Activity, External Approach (ICD-10-PCS; 2016-09-14)
PROC: 5A1D60Z (ICD-10-PCS; 2016-09-14)
PROC: 02HV33Z Insertion of Infusion Device into Superior Vena Cava, Percutaneous Approach (ICD-10-PCS; 2016-09-16)
PROC: B518YZA Fluoroscopy of Superior Vena Cava using Other Contrast, Guidance (ICD-10-PCS; 2016-09-16)
PROC: 0FB23ZX Excision of Left Lobe Liver, Percutaneous Approach, Diagnostic (ICD-10-PCS; principal; 2016-09-18)
DX: G40.909 Epilepsy, unspecified, not intractable, without status epilepticus (principal); N18.6 End stage renal disease; E87.2 Acidosis; N17.9 Acute kidney failure, unspecified; I12.0 Hypertensive chronic kidney disease with stage 5 chronic kidney disease or end stage renal disease; G93.89 Other specified disorders of brain; Z86.011 Personal history of benign neoplasm of the brain; D64.9 Anemia, unspecified; I16.0 Hypertensive urgency
CPT/HCPCS: 36415; 70450; 71010; 76775; 77012; 80048; 80053; 80061; 80307; 81001; 81003; 82043; 82306; 82550; 82553; 82595; 82728; 83036; 83540; 83735; 83970; 84100; 84155; 84300; 84439; 84443; 84484; 85025; 85610; 85730; 86021; 86038; 86160; 86226; 86430; 86704; 86709; 86803; 87086; 87340; 90935; 93005; 95819; 96374; 96375; C1750; J0360; J0886; J1200; J1644; J1953; J2060; J2150; J2250; J2270; J3010; J7030; Q9967